=== PATIENT | female | born 1945 | race Caucasian/White ===

== ENCOUNTER 2017-02-09 09:54 | Emergency (ER) | payer MEDICARE, OTHER ==
[~2017-02-09] VITALS: Ht 170.2 cm; Wt 45.4 kg
[~2017-02-09 09:54] MED LIST: ALBU90OI61 INH; ALBUTEROL INH; DILT180 PO; FLUSAL2505 INH; GUAI600T33 PO; LEVFLO500 PO; LEVO750 PO; LEVSOD75 PO; MIRALAX17 GM PO; NICO7 TOP; OMEP20ER PO; PRED10 PO; Prednisone20 MG PO; Prednisone50 MG PO; Senna Plus Tab1 EACH PO; TEMA7.5 PO; TIOT18; Zithromax250 MG PO
[2017-02-09 11:31] LABS: BASOPHILS ABSOLUTE AUTO 0.03 K/mm3 (0.00-0.23); BASOPHILS PERCENT AUTO 0 % (0-2); EOSINOPHILS ABSOLUTE AUTO 0.04 K/mm3 (0.00-0.68); EOSINOPHILS PERCENT AUTO 0 % (0-6); Hematocrit 42.8 % (33.0-51.0); Hemoglobin 13.8 g/dL (11.5-16.0); IMMATURE GRAN ABSOLUTE AUTO 0.02 K/mm3 (0.00-0.10); IMMATURE GRAN PERCENT AUTO 0 % (0-1); LYMPHOCYTES ABSOLUTE AUTO 0.92 K/mm3 (0.84-5.20); LYMPHOCYTES PERCENT AUTO 10 % (21-46); MONOCYTES ABSOLUTE AUTO 0.31 K/mm3 (0.16-1.47); MONOCYTES PERCENT AUTO 4 % (4-13); Mean Corpuscular HGB 30.9 pg (26.0-34.0); Mean Corpuscular HGB Conc 32.2 g/dL (31.5-36.5); Mean Corpuscular Volume 96 fL (80-100); Mean Platelet Volume 11.3 fL (9.1-12.4); NEUTROPHILS ABSOLUTE AUTO 7.58 K/mm3 (1.96-9.15); NEUTROPHILS PERCENT AUTO 85 % (41-73); Platelet Count 219 K/mm3 (150-400); RDW Coefficient Variation 14.7 % (11.7-14.2); RDW Standard Deviation 52.1 fL (35.1-46.3); Red Blood Cell Count 4.46 M/mm3 (3.80-5.20)
[2017-02-09 11:41] LABS: Anion Gap 4 mmol/L (6-16); Blood Urea Nitrogen 7 mg/dL (8-24); Bun/Creatinine Ratio 13.6 (12.0-20.0); CO2, Blood 32 mmol/L (21-32); Calcium, Blood 8.2 mg/dL (8.5-10.1); Chloride, Blood 102 mmol/L (98-108); Creatinine, Blood 0.52 mg/dL (0.40-1.00); Glomerular Filtration Rate >60 (60-); Glucose, Blood 99 mg/dL (70-99); Sodium, Blood 138 mmol/L (136-145); Troponin I <0.015 ng/mL (0.000-0.040)
[2017-02-09 11:43] LABS: Influenza A Negative (NEGATIVE); Influenza B Negative (NEGATIVE)
[2017-02-09] MEDS ORDERED: Zithromax250 MG PO (12:01)
[2017-02-09] MEDS ORDERED: Prednisone20 MG PO (12:01)
== END 2017-02-09 13:07 | disposition home or self-care (01) ==
LOC: ER 09:54
PROVIDERS: Emergency Medicine
DX: J44.1 Chronic obstructive pulmonary disease with (acute) exacerbation (principal); F41.9 Anxiety disorder, unspecified; F17.200 Nicotine dependence, unspecified, uncomplicated; Z88.0 Allergy status to penicillin; Z88.2 Allergy status to sulfonamides; Z88.8 Allergy status to other drugs, medicaments and biological substances; Z79.899 Other long term (current) drug therapy; Z90.89 Acquired absence of other organs
CPT/HCPCS: 36415; 71046; 80048; 83880; 84484; 85025; 87804; 93005; 93010; 94640; 96361; 96374; 99283; J2060; J7030

== ENCOUNTER → 2017-06-04 | Outpatient (CLI) | payer MEDICARE, OTHER ==
[2017-06-04 18:28] LABS: Appearance, Urine Clear (Clear); Bilirubin, Urine Neg (Neg); Blood, Urine 1+ (Neg); Color, Urine Yellow (P-Yellow); Glucose Qualitative, Urine Neg (Neg); Ketones, Urine Neg (Neg); Leukocyte Esterase, Urine Neg (Neg); Nitrite, Urine Neg (Neg); Protein, Urine Neg (Neg); Specific Gravity, Urine 1.015 (1.003-1.022); Urobilinogen, Urine NORM (Normal)
[2017-06-04 18:42] LABS: Bacteria Not Seen /hpf; Red Blood Cells, Urine Not Seen /hpf (0-2); Squamous Epithelial Cells Not Seen /hpf (Few); White Blood Cells, Urine Not Seen /hpf (0-5)
== END | disposition home or self-care (01) ==
LOC: LAB 17:51 → LAB SHORT 17:51
PROVIDERS: Nurse Practitioner Family
DX: R35.0 Frequency of micturition (principal)
CPT/HCPCS: 81001

== ENCOUNTER → 2018-03-19 | Outpatient (CLI) | payer MEDICARE, OTHER ==
[2018-03-19 11:57] LABS: Source, Urine Clean Catch
[2018-03-19 17:26] LABS: Bilirubin, Urine Neg (Neg); Blood, Urine 1+ (Neg); Glucose Qualitative, Urine Neg (Neg); Ketones, Urine Neg (Neg); Leukocyte Esterase, Urine Neg (Neg); Nitrite, Urine Neg (Neg); Protein, Urine Neg (Neg); Urobilinogen, Urine NORM (Normal); pH, Urine 6.5 (5.0-8.0)
[2018-03-19 17:43] LABS: Appearance, Urine Clear (Clear); Color, Urine Yellow (P-Yellow)
[2018-03-19 17:44] LABS: Bacteria Few /hpf; Squamous Epithelial Cells Few /hpf (Few); White Blood Cells, Urine 0-2 /hpf (0-5)
== END | disposition home or self-care (01) ==
LOC: LAB 11:54 → LAB SHORT 11:54
PROVIDERS: Nurse Practitioner Family
DX: R31.29 Other microscopic hematuria (principal)
CPT/HCPCS: 81001

== ENCOUNTER 2018-09-22 23:26 | Emergency (ER) | payer MEDICARE, OTHER ==
[~2018-09-22] VITALS: Ht 167.6 cm; Wt 51.7 kg
[2018-09-22] MEDS ORDERED: SYNTHROID75 MC1 PO (23:41)
[2018-09-22] MEDS ORDERED: MYRBETRIQ25 MG PO (23:41)
[2018-09-22 23:53] LABS: BASOPHILS ABSOLUTE AUTO 0.03 K/mm3 (0.00-0.23); BASOPHILS PERCENT AUTO 0 % (0-2); EOSINOPHILS ABSOLUTE AUTO 0.08 K/mm3 (0.00-0.68); EOSINOPHILS PERCENT AUTO 1 % (0-6); Hematocrit 39.4 % (33.0-51.0); Hemoglobin 12.9 g/dL (11.5-16.0); IMMATURE GRAN ABSOLUTE AUTO 0.06 K/mm3 (0.00-0.10); IMMATURE GRAN PERCENT AUTO 1 % (0-1); LYMPHOCYTES ABSOLUTE AUTO 1.43 K/mm3 (0.84-5.20); LYMPHOCYTES PERCENT AUTO 11 % (21-46); MONOCYTES ABSOLUTE AUTO 1.33 K/mm3 (0.16-1.47); MONOCYTES PERCENT AUTO 11 % (4-13); Mean Corpuscular HGB 31.8 pg (26.0-34.0); Mean Corpuscular HGB Conc 32.7 g/dL (31.5-36.5); Mean Corpuscular Volume 97 fL (80-100); Mean Platelet Volume 12.1 fL (9.1-12.4); NEUTROPHILS ABSOLUTE AUTO 9.76 K/mm3 (1.96-9.15); NEUTROPHILS PERCENT AUTO 77 % (41-73); Platelet Count 160 K/mm3 (150-400); RDW Coefficient Variation 12.5 % (11.7-14.2); Red Blood Cell Count 4.06 M/mm3 (3.80-5.20); White Blood Cell Count 12.69 K/mm3 (4.00-11.30)
[2018-09-23 00:21] LABS: Alanine Aminotransfer (ALT/SGP 17 U/L (12-78); Albumin, Blood 3.4 g/dL (3.4-5.0); Albumin/Globulin Ratio 0.8 (0.8-1.8); Alk Phos 88 U/L (50-136); Anion Gap 7 mmol/L (6-16); Aspartate Aminotrans (AST/SGOT 12 U/L (12-37); Blood Urea Nitrogen 11 mg/dL (8-24); Bun/Creatinine Ratio 22.4 (12.0-20.0); CO2, Blood 28 mmol/L (21-32); Chloride, Blood 97 mmol/L (98-108); Creatinine, Blood 0.49 mg/dL (0.40-1.00); Globulin, Blood 4.1 g/dL (2.2-4.0); Glomerular Filtration Rate >60 (60-); Glucose, Blood 110 mg/dL (70-99); Potassium, Blood 3.8 mmol/L (3.5-5.5); Sodium, Blood 132 mmol/L (136-145); Total Protein, Blood 7.5 g/dL (6.4-8.2); Troponin I <0.015 ng/mL (0.000-0.040)
[2018-09-23] MEDS ORDERED: Zithromax250 MG PO (01:01)
[2018-09-23] MEDS ORDERED: Prednisone50 MG PO (01:01)
== END 2018-09-23 02:16 | disposition home or self-care (01) ==
LOC: ER 23:26
PROVIDERS: Emergency Medicine
DX: J44.1 Chronic obstructive pulmonary disease with (acute) exacerbation (principal); Z88.0 Allergy status to penicillin; Z88.2 Allergy status to sulfonamides; Z88.8 Allergy status to other drugs, medicaments and biological substances; Z79.899 Other long term (current) drug therapy; J44.9 Chronic obstructive pulmonary disease, unspecified; F17.210 Nicotine dependence, cigarettes, uncomplicated
CPT/HCPCS: 71046; 80053; 84484; 85025; 93005; 93010; 94640; 96374; 99284-25; J1100

== ENCOUNTER 2018-11-23 06:41 | Emergency (ER) | payer MEDICARE, OTHER ==
[~2018-11-23] VITALS: Ht 167.6 cm; Wt 52.2 kg
[~2018-11-23 06:41] MED LIST changes: +MYRBETRIQ25 MG PO; +SYNTHROID75 MC1 PO
[2018-11-23] MEDS ORDERED: ANORO ELLIPTA1 EACH INH (06:54)
[2018-11-23] MEDS ORDERED: SYNTHROID75 MCG PO (06:54)
[2018-11-23] MEDS ORDERED: MYRBETRIQ25 MG PO (06:56)
[2018-11-23 07:07] LABS: BASOPHILS ABSOLUTE AUTO 0.04 K/mm3 (0.00-0.23); BASOPHILS PERCENT AUTO 0 % (0-2); EOSINOPHILS ABSOLUTE AUTO 0.04 K/mm3 (0.00-0.68); EOSINOPHILS PERCENT AUTO 0 % (0-6); Hematocrit 42.7 % (33.0-51.0); Hemoglobin 13.8 g/dL (11.5-16.0); IMMATURE GRAN ABSOLUTE AUTO 0.05 K/mm3 (0.00-0.10); IMMATURE GRAN PERCENT AUTO 1 % (0-1); LYMPHOCYTES ABSOLUTE AUTO 1.47 K/mm3 (0.84-5.20); LYMPHOCYTES PERCENT AUTO 14 % (21-46); MONOCYTES ABSOLUTE AUTO 0.79 K/mm3 (0.16-1.47); MONOCYTES PERCENT AUTO 8 % (4-13); Mean Corpuscular HGB 31.2 pg (26.0-34.0); Mean Corpuscular HGB Conc 32.3 g/dL (31.5-36.5); Mean Corpuscular Volume 96 fL (80-100); NEUTROPHILS ABSOLUTE AUTO 8.12 K/mm3 (1.96-9.15); NEUTROPHILS PERCENT AUTO 77 % (41-73); RDW Coefficient Variation 12.6 % (11.7-14.2); RDW Standard Deviation 45.1 fL (35.1-46.3); Red Blood Cell Count 4.43 M/mm3 (3.80-5.20); White Blood Cell Count 10.51 K/mm3 (4.00-11.30)
[2018-11-23 07:09] LABS: Platelet Count 128 K/mm3 (150-400)
[2018-11-23 07:29] LABS: Alanine Aminotransfer (ALT/SGP 18 U/L (12-78); Albumin, Blood 3.6 g/dL (3.4-5.0); Albumin/Globulin Ratio 0.9 (0.8-1.8); Alk Phos 88 U/L (50-136); Anion Gap 7 mmol/L (6-16); Aspartate Aminotrans (AST/SGOT 17 U/L (12-37); Bilirubin, Total 0.5 mg/dL (0.1-1.0); Blood Urea Nitrogen 10 mg/dL (8-24); Bun/Creatinine Ratio 20.2 (12.0-20.0); CO2, Blood 26 mmol/L (21-32); Calcium, Blood 8.8 mg/dL (8.5-10.1); Chloride, Blood 101 mmol/L (98-108); Glomerular Filtration Rate >60 (60-); Glucose, Blood 112 mg/dL (70-99); Potassium, Blood 4.1 mmol/L (3.5-5.5); Sodium, Blood 134 mmol/L (136-145); Total Protein, Blood 7.6 g/dL (6.4-8.2)
[2018-11-23] MEDS ORDERED: PRED20 PO (07:52)
[2018-11-23] MEDS ORDERED: AZIT250 PO (07:52)
== END 2018-11-23 10:05 | disposition home or self-care (01) ==
LOC: ER 06:41
PROVIDERS: Emergency Medicine
DX: J44.1 Chronic obstructive pulmonary disease with (acute) exacerbation (principal); Z88.0 Allergy status to penicillin; Z88.2 Allergy status to sulfonamides; Z88.8 Allergy status to other drugs, medicaments and biological substances; Z79.899 Other long term (current) drug therapy; F17.210 Nicotine dependence, cigarettes, uncomplicated
CPT/HCPCS: 71045; 80053; 85025; 93005; 93010; 94644; 94664; 94667; 94760; 98960; 99285-25; 99407

== ENCOUNTER 2019-12-18 19:53 | Inpatient (IN) | payer MEDICARE, OTHER ==
[~2019-12-18] VITALS: Ht 165.1 cm; Wt 48.5 kg
[~2019-12-18 19:53] MED LIST changes: +ANORO ELLIPTA1 EACH INH; +AZIT250 PO; +PRED20 PO; +SYNTHROID75 MCG PO
[2019-12-18 20:43] LABS: PCO2 Arterial 49.4 mmHg (35-45); PO2 Arterial 86.6 mmHg (80-100); pH Blood Arterial 7.39 (7.35-7.45)
[2019-12-18 20:51] LABS: BASOPHILS ABSOLUTE AUTO 0.04 K/mm3 (0.00-0.23); BASOPHILS PERCENT AUTO 0 % (0-2); EOSINOPHILS ABSOLUTE AUTO 0.01 K/mm3 (0.00-0.68); EOSINOPHILS PERCENT AUTO 0 % (0-6); Hematocrit 40.1 % (33.0-51.0); Hemoglobin 12.7 g/dL (11.5-16.0); IMMATURE GRAN ABSOLUTE AUTO 0.08 K/mm3 (0.00-0.10); IMMATURE GRAN PERCENT AUTO 1 % (0-1); LYMPHOCYTES ABSOLUTE AUTO 0.78 K/mm3 (0.84-5.20); LYMPHOCYTES PERCENT AUTO 5 % (21-46); MONOCYTES ABSOLUTE AUTO 1.24 K/mm3 (0.16-1.47); MONOCYTES PERCENT AUTO 8 % (4-13); Mean Corpuscular HGB 29.5 pg (26.0-34.0); Mean Corpuscular HGB Conc 31.7 g/dL (31.5-36.5); Mean Corpuscular Volume 93 fL (80-100); Mean Platelet Volume 12.1 fL (9.1-12.4); NEUTROPHILS ABSOLUTE AUTO 14.38 K/mm3 (1.96-9.15); NEUTROPHILS PERCENT AUTO 87 % (41-73); Platelet Count 176 K/mm3 (150-400); RDW Coefficient Variation 13.1 % (11.7-14.2); RDW Standard Deviation 44.9 fL (35.1-46.3); White Blood Cell Count 16.53 K/mm3 (4.00-11.30)
[2019-12-18 20:55] LABS: Alanine Aminotransfer (ALT/SGP 12 U/L (12-78); Albumin, Blood 3.1 g/dL (3.4-5.0); Albumin/Globulin Ratio 0.8 (0.8-1.8); Alk Phos 88 U/L (50-136); Anion Gap 7 mmol/L (6-16); Aspartate Aminotrans (AST/SGOT 14 U/L (12-37); Bilirubin, Total 0.9 mg/dL (0.1-1.0); Blood Urea Nitrogen 12 mg/dL (8-24); Bun/Creatinine Ratio 38.5 (12.0-20.0); CO2, Blood 29 mmol/L (21-32); Calcium, Blood 8.5 mg/dL (8.5-10.1); Chloride, Blood 100 mmol/L (98-108); Creatinine, Blood 0.31 mg/dL (0.40-1.00); Globulin, Blood 4.1 g/dL (2.2-4.0); Glomerular Filtration Rate >60 (60-); Glucose, Blood 108 mg/dL (70-99); Potassium, Blood 3.8 mmol/L (3.5-5.5); Sodium, Blood 136 mmol/L (136-145); Total Protein, Blood 7.2 g/dL (6.4-8.2); Troponin I <0.015 ng/mL (0.000-0.040)
[2019-12-18 22:03] LABS: Adenovirus Not Detected (NOT DETECT); Bordetella pertussis Not Detected (NOT DETECT); Chlamydophila pneumoniae Not Detected (NOT DETECT); Coronavirus 229E Not Detected (NOT DETECT); Coronavirus HKU1 Not Detected (NOT DETECT); Coronavirus NL63 Not Detected (NOT DETECT); Coronavirus OC43 Not Detected (NOT DETECT); Human Metapneumovirus Not Detected (NOT DETECT); Human Rhinovirus/Enterovirus Not Detected (NOT DETECT); Influenza A/2009-H1 Not Detected (NOT DETECT); Influenza A/H1 Not Detected (NOT DETECT); Influenza A/H3 Not Detected (NOT DETECT); Influenza B Not Detected (NOT DETECT); Mycoplasma pneumoniae Not Detected (NOT DETECT); Parainfluenza Virus 1 Not Detected (NOT DETECT); Parainfluenza Virus 2 Not Detected (NOT DETECT); Parainfluenza Virus 3 Not Detected (NOT DETECT); Parainfluenza Virus 4 Not Detected (NOT DETECT); Respiratory Syncytial Virus Not Detected (NOT DETECT); SARS-Cov-2 (COVID-19), BioFire Not Detected (NOT DETECT)
--- NOTE | 2019-12-19 02:07 | NUR ---
PATIENT ARRIVED TO UNIT AT 0000 AND WAS SLID FROM STRETCHER TO BED. RECIEVED REPORT FROM JONEL FLYNN. PATIENT IS ALERT, ORIENTED AND COOPERATIVE WITH CARE. PATIENT HAS VERY DRY SKIN. PATIENT WAS GIVEN BED BATH, LOTION APPLIED, AND BRIEF CHANGED. O2 IS >90% ON 4L VIA NC, PURSED LIP BREATHING ON ARRIVAL TO UNIT, PATIENT IS CURRENTLY SLEEPING. VSS. CURRENTLY ON BEDREST DUE TO OXYGEN NEEDS. CALL LIGHT IN REACH, BED IN LOW POSITION. WILL CONTINUE TO MONITOR.
[2019-12-19 05:00] LABS: BASOPHILS ABSOLUTE AUTO 0.01 K/mm3 (0.00-0.23); BASOPHILS PERCENT AUTO 0 % (0-2); EOSINOPHILS ABSOLUTE AUTO 0.01 K/mm3 (0.00-0.68); EOSINOPHILS PERCENT AUTO 0 % (0-6); Hematocrit 35.3 % (33.0-51.0); Hemoglobin 11.1 g/dL (11.5-16.0); IMMATURE GRAN ABSOLUTE AUTO 0.07 K/mm3 (0.00-0.10); IMMATURE GRAN PERCENT AUTO 1 % (0-1); LYMPHOCYTES ABSOLUTE AUTO 0.38 K/mm3 (0.84-5.20); LYMPHOCYTES PERCENT AUTO 3 % (21-46); MONOCYTES ABSOLUTE AUTO 0.17 K/mm3 (0.16-1.47); MONOCYTES PERCENT AUTO 1 % (4-13); Mean Corpuscular HGB 29.4 pg (26.0-34.0); Mean Corpuscular HGB Conc 31.4 g/dL (31.5-36.5); Mean Corpuscular Volume 93 fL (80-100); Mean Platelet Volume 12.2 fL (9.1-12.4); NEUTROPHILS ABSOLUTE AUTO 12.16 K/mm3 (1.96-9.15); NEUTROPHILS PERCENT AUTO 95 % (41-73); Platelet Count 158 K/mm3 (150-400); RDW Coefficient Variation 13.1 % (11.7-14.2); RDW Standard Deviation 45.1 fL (35.1-46.3); Red Blood Cell Count 3.78 M/mm3 (3.80-5.20)
--- NOTE | 2019-12-19 05:07 | NUR ---
PATIENT SLEPT MOST THE NIGHT. USED BEDPAN DUE TO OXYGEN NEEDS AND BECOMING SOB WITH EXERTION. 02 SATS >90% ON 3L NC. REPOSITIONS SELF WELL IN BED. PATIENT COMPLAINED OF COMPRESSION SOCKS CAUSING LEG PAIN. ASKED TO HAVE THEM TAKEN OFF. VSS, NO ACUTE CHANGES. CALL RAOUL LOZOYA. WILL CONTINUE TO MONITOR.
[2019-12-19 05:29] LABS: Anion Gap 4 mmol/L (6-16); Blood Urea Nitrogen 11 mg/dL (8-24); Bun/Creatinine Ratio 34.7 (12.0-20.0); CO2, Blood 32 mmol/L (21-32); Calcium, Blood 8.7 mg/dL (8.5-10.1); Chloride, Blood 99 mmol/L (98-108); Creatinine, Blood 0.32 mg/dL (0.40-1.00); Glomerular Filtration Rate >60 (60-); Glucose, Blood 126 mg/dL (70-99); Potassium, Blood 3.8 mmol/L (3.5-5.5); Sodium, Blood 135 mmol/L (136-145)
--- NOTE | 2019-12-19 10:26 | NUR ---
ASSUMED CARE OF PT, RECEIVED REPORT FROM GEE ESTEVEZ. PT CONTINUES ALERT AND ORIENTED, OXYGEN FLOW CURRENTLY AT 2.5 L/MIN WHICH IS PT'S BASELINE, O2 SATS >90%. PT CONTINUES TO STATE SOB, SITTING UPRIGHT IN BED WITH OCCASIONAL PURSED LIP BREATHING. PT DENIES INCREASE IN SOB LONG SHE RESTS IN BED, STATES SIGNIFICANT SOB WITH ACTIVITY. PT RESTING QUIETLY IN BED WITH TV ON, CALL LIGHT WITHIN REACH.
--- NOTE | 2019-12-19 18:04 | NUR ---
SHIFT SUMMARY: NO ACUTE CHANGES T/OUT SHIFT. PT CONTINUES A&OX4, RESTS QUIETLY WITH EYES CLOSED BUT AROUSES EASILY. WHEN PT APPEARS TO BE SLEEPING, HER BREATHING IS EVEN AND UNLABORED WITH OXYGEN SATURATIONS ABOUT 93%, WHEN PT AROUSES HER BREATHING APPEARS TO BECOME MORE LABORED WITH OCCASIONAL PURSED LIP BREATHING AND OXYGEN SATURATION ABOUT 90%. PT OXYGEN FLOW AT 3L/MIN AT THIS TIME. CALL LIGHT WITHIN REACH. WILL CONTINUE TO MONITOR AND TREAT ACCORDINGLY.
--- NOTE | 2019-12-19 19:15 | NUR ---
ASSUMED CARE OF PATIENT, RECEIVED REPORT FROM AMADOU FLYNN. PT SITTING UP IN BED WATCHING TV. O2 @3LPM, DYSPNEA NOTED WHEN PATIENT TALKING. NO ACUTE RESP DISTRESS OBSERVED AT THIS TIME, DENIES PAIN. WILL CONTINUE TO MONITOR
--- NOTE | 2019-12-20 16:58 | NUR ---
REPORT GIVEN TO YAHAIRA FLYNN ON MEDICAL.
--- NOTE | 2019-12-20 16:58 | NUR ---
RECEIEVED REPORT FROM JASON FLYNN, PATIENT TO TRANSFER FROM ROOM PCU 13 TO 306.
--- NOTE | 2019-12-20 17:26 | NUR ---
PATIENT ARRIVED TO ROOM 306 AT 1710. PATIENT SITUATED IN ROOM AND BED AND GIVEN CALL LIGHT. ENSURED PATIENTS COMFORT. PATIENT ON 4LO2 NC; PURSED-LIP BREATHING NOTED. CALL LIGHT IN REACH. WILL CONTINUE TO MONITOR AND PROVIDE CARE.
--- NOTE | 2019-12-21 06:03 | NUR ---
SHIFT SUMMARY AOX4. VSS. DENIES PAIN, N/V. REPORTS DYSPNEA c VERY MINIMAL ACTIVITY. IS ABLE TO TALK IN COMPLETE SENTENCES, HOWEVER DOES PURSED LIP BREATHING. HOB ELEVATED & CAN'T TOLERATE HOB DOWN. SPO2 >90% ON 4L, ABLE TO TITRATE O2 DOWN TO 3L (2.5L IS BASLINE). LUNGS SOUND DIM & TIGHT T/O. HAS OCCASIONAL CONGESTED COUGH c SMALL AMOUNT THICK YELLOW SPUTUM. BEDREST SINCE PT IS DYSPNIC EVEN c MOVEMENT IN BED. RECIEVING BREATHING TX PRN & IV SOLUMEDROL. CALL LIGHT IN REACH & PT ABLE TO MAKE NEEDS KNOWN.
[2019-12-21 13:23] LABS: PCO2 Arterial 49.5 mmHg (35-45); pH Blood Arterial 7.44 (7.35-7.45)
--- NOTE | 2019-12-21 15:53 | NUR ---
PATIENT PLEASANT AND COOPERATIVE WITH STAFF. VITALS HAVE BEEN STABLE, ALTHOUGH RR ELEVATED AT ~22. RT WAS IN GIVING PATIENT A BREATHING TREATMENT AND NOTICED A LARGE DIFFERENCE BETWEEN FLUID INTAKE VS OUTPUT; NOTIFIED ME. I WEIGHT THE PATIENT AND NOTICED A 3.9KG WEIGHT INCREASE SINCE ADMISSION THREE DAYS AGO. DR DUMONT NOTIFIED OF THIS PATIENT CONTINUES TO BE SEVERELY DYSPNIC EVEN AT REST. PATIENT USES PURSE-LIPPED BREATHING CONSTANTLY. DR DUMONT PROVIDED NEW ORDERS TO PLACE PATIENT ON STRICT I&Os, FLUID RESTRICTION OF 1.5L/DAY, 40MG OF IV LASIX NOW AND THEN DAILY, AND DAILY WEIGHTS. FIRST DOSE OF LASIX ADMINISTERED. PATIENT EXPLAINED THE NEW ORDERS AND THE REASONS BEHIND THEM. PATIENT CONTINUES TO REST IN BED. WILL CONTINUE TO MONITOR AND PROVIDE CARE NEEDED.
--- NOTE | 2019-12-22 01:57 | NUR ---
Assumed care from GEE Ohara at [phone]. Ms. Aguilar is A&OX3 and states she is having no discomfort. Legs with trace to 1+ edema. No change from 2129 report. will continue close monitoring
--- NOTE | 2019-12-22 07:47 | NUR ---
[employer] SUMMARY Patient slept well overnight. She sat up in bed to sleep around 45 degrees. Stated she sleeps sitting up at home. No complaints of pain or discomfort noted
--- NOTE | 2019-12-22 15:20 | NUR ---
PCU TRANSFER REPORT CALLED TO JEFRY IN PCU. PER DR LOWE TRANSFER TO PCU TO TRIAL BIPAP. PT HAS BEEN ON 3L VIA N/C T/O THE DAY, LS DIMINISHED T/O. PT SOB WITH MINIMAL MOVEMENT, PURSED LIP BREATHING AND TALKING IN SHORT SENTENCES. PT TRANSFERED AT 1515 TO PCU 11 VIA BED. WILL NOTIFY SON.
--- NOTE | 2019-12-22 18:11 | NUR ---
SHIFT SUMMARY; ASSUMED CARE FROM MEDICAL FLOOR FOR IN HOUSE TRANSFER. A/A/OX4, ON 2.5L O2 ON ARRIVAL WHICH IS BASELINE HOME O2. SATS 94%, NO VISIBLE WORK OF BREATHING. SPOKE WITH DOUBLE BACKER WHO ORDERED BIPAP TRIAL. BIPAP STARTED BY RT. PT WORE FOR APPROX 30 MINS THEN ASKED FOR MASK TO BE REMOVED. PT STATES IT DOESN'T DO ANY GOOD. PER DR. NICK ENCOURAGE WEAR DURING NIGHT, IF PT REFUSES, OK. BIPAP REMOVED AT THIS TIME, PT EATING DINNER TRAY, 2.5L 02 VIA NC PLACED. WILL CONTINUE TO TREAT AND MONITOR UNTIL CHANGE OF SHIFT.
--- NOTE | 2019-12-23 06:06 | NUR ---
SHIFT SUMMARY PT SLEPT T/O SHIFT. PT ALERT AND ORIENTED. PT ABLE TO TURN SELF IN BED. OXYGEN SATURATION ABOVE 92% ON 2.5 L OF OXYGEN VIA NC. HR STABLE. BP STABLE. PT REPORTS NO CP OR PRESSURE. WILL CONTINUE TO [place]ONT[place] UNTIL REPORT GIVEN TO MARIA FLYNN.
--- NOTE | 2019-12-23 09:45 | NUR ---
AT 0930, [employer] FIONA PEREZ CALLED TO NOTIFY ME THAT PATIENT'S HEART RATE WAS UP IN THE 190'S. I WENT INTO THE PATIENT'S ROOM. SHE WAS WORKING WITH PHYSICAL THERAPY. PHYSICAL THERAPIST STATES THAT SHE WAS ONLY HELPING TO SCOOT PATIENT UP IN THE BED. PATIENT SHORT OF BREATH. SPO2 IN 90'S. DENIES CHEST PAIN AND PALPITATIONS. STATES "I FEEL LIKE THIS ALL THE TIME". ASSISTED PATIENT TO SIT UP IN BED. BP 140/60. HEART RATE TRENDING DOWN TO 1 TEENS. PHYSICAL THERAPIST TO ASSIST PATIENT WITH IN BED EXERCISES, NOT ATTEMPTING TO GET PATIENT OUT OF BED AT THIS TIME.
--- NOTE | 2019-12-23 10:15 | NUR ---
PATIENT'S HEART RATE NOTED TO SPIKE UP TO THE 170'S AT 1000 BRIEFLY. BP NOW IN THE 1TEENS. PATIENT CONTINUES TO DENY CHEST PAIN AND SHORTNESS OF BREATH. CALLED DR. DUMONT AND NOTIFIED HIM OF PATIENT'S SPIKES IN HEART RATE. PATIENT IS STILL SINUS TACH. READ HIM PATIENT'S LAST BLOOD PRESSURES. DR. DUMONT STATES THAT HE WILL BE UP SHORTLY TO SEE THE PATIENT. STATES TO MAKE SURE PALLIATIVE CARE CONSULT HAS BEEN ORDERED.
--- NOTE | 2019-12-23 11:25 | NUR ---
DR. DUMONT AT BEDSIDE. DISCUSSED POC. DISCUSSED ELEVATIONS IN HEART RATE, PATIENT'S VITALS, WEIGHT, INTAKE AND OUTPUT, AND LASIX ADMINISTRATION. DR. DUMONT REVIEWED TELESTRIP OF HIGH HEART RATE EVENT. POPPY MIHIR STATED PATIENT WAS ANXIOUS AT 1000 WHEN HER HEART RATE SPIKED. DR. DUMONT GAVE ORDERS FOR ATIVAN, SEE EMAR. MKCEON FROM PALLIATIVE CARE CAME DOWN AND SPOKE WITH DR. DUMONT AND THEN SPOKE WITH THE PATIENT.
--- NOTE | 2019-12-23 12:45 | NUR ---
[facility] CALLED TO NOTIFY ME THAT PATIENT'S HEART RATE WAS ELEVATED IN THE 150'S. PATIENT UP TO [facility] AND RECEIVING A BATH. DENIES CHEST PAIN AND PALPITATIONS. BP 116/70. STATES SHE FEELS "A LITTLE MORE SHORT OF BREATH THAN USUAL". SPO2 IN 90'S ON 2.5L O2 VIA NC. HEART RATE QUICKLY TRENDING DOWN TO THE 120'S.
--- NOTE | 2019-12-23 14:30 | NUR ---
SPOKE WITH DR. CORRAL. NOTIFIED HER PATIENT ON 2.5L O2 VIA NC, HEART RATE ELEVATED UP TO 190'S WITH ACTIVITY THIS AM AND THEN UP TO 150'S WITH ACTIVITY THIS AFTERNOON. SHE STATES PATIENT IS ON A STEROID. SHE TALKED WITH PALLIATIVE CARE AND THEY ARE ADJUSTING CODE STATUS BASED ON PATIENT PREFERENCE.
--- NOTE | 2019-12-23 19:12 | NUR ---
SHIFT SUMMARY: PATIENT A/OX3. HAS DENIED PAIN THROUGHOUT THE SHIFT. ON 2.5L O2 VIA NC. HEART RATE INCREASED TO 150'S-160'S AND BRIEFLY TOUCHING 190 THIS AM WITH MINIMAL ACTIVITY, MD AWARE. HEART RATE UP TO 150'S-160'S WHEN UP TO BSC AND WITH BED BATH, TRENDED BACK DOWN. WHEN HEART RATE IS ELEVATED PATIENT DENIES CHEST PAIN AND PALPITATIONS BUT REPORTS SLIGHT INCREASE IN SHORTNESS OF BREATH. SHE DISCUSSED PLAN WITH PALLIATIVE CARE. CODE STATUS CHANGED TO LIMITED WITH DEFIB ONLY. HEART RATE IS NOW IN THE 90'S. ABLE TO REPOSITION SELF IN BED. REFUSED RYAN HOSE. REPORT GIVEN TO ONCOMING RN.
--- NOTE | 2019-12-24 05:50 | NUR ---
SHIFT SUMMARY PT SLEPT T/O SHIFT. PT ALERT AND ORIENTED X 4. PT ABLE TO TURN SELF IN BED NEEDED. OXYGEN SATURATION MAINTAINED ABOVE 92% ON 2.5 L OF OXYGEN VIA NC. PT REFUSED CPAP T/O NIGHT. HR STABLE. TACYCHARDIC AT TIMES DURING EXERTION, BUT RETURNS TO BASELINE. BP STABLE. PT REPORTS NO CP OR PRESSURE. WILL CONTINUE TO MONITOR UNTIL REPORT GIVEN TO DARBY FLYNN.
--- NOTE | 2019-12-24 07:36 | NUR ---
CARE ASSUMED REPORT RECEIVED, CARE ASSUMED AT 0700 FROM GEE PENA. ON ROUNDS PT ASLEEP WITH HOB ELEVATED. RR EVEN, UNLABORED. WHEN WOKEN UP FOR ASSESSMENT, PT TACHYPNEIC, RR ELEVATED, PURSED LIP BREATHING. PT REPORTS FEELING SOB. BP, HR, SPO2 STABLE ON 2 LPM NASAL CANNULA. PT DENIES CHEST PAIN/DIZZINESS. REPORTS OVERALL FEELING EXTREMELY WEAK TODAY. LUCINA, RT AT BEDSIDE WITH PATIENT GIVING RESPIRATORY TREATMENT AT THIS TIME.
--- NOTE | 2019-12-24 09:20 | NUR ---
UPDATE PT CONTINUES TO BE SHORT OF BREATH. OXYGEN DEMANDS REMAIN THE SAME. PT VISIBLY PURSED LIP BREATHING, SITTING IN BED WITH HOB AT HIGHEST SETTING, FURROWED BROW, REPORTS FEELING SEVERELY SHORT OF BREATH. DISCUSSED ATIVAN AND USE OF CPAP. PT REPORTS FEELING LIKE THE CPAP IS NOT EFFECTIVE. WHEN EDUCATED, PT AGREEABLE. ABLE TO TAKE PO MEDICATIONS WITHOUT DIFFICULTY. PT CONTINUES TO DENY CHEST PAIN, DIZZINESS.
--- NOTE | 2019-12-24 11:08 | NUR ---
UPDATE PT WORE CPAP FOR ONLY 5 MINUTES AND CALLED TO HAVE IT TAKEN OFF. RATE IN THE 30'S. PT REPORTS IT TOO UNCOMFORTABLE. CHANGED PT BACK TO NASAL CANNULA. SINCE THEN, PT USED BEDPAN FOR BOWEL MOVEMENT, TOOK A NAP AND WAKES UP TO DOCTOR ENTERING ROOM AND STATES, "I FEEL SO MUCH BETTER. I THINK THE NAP AND THE BOWEL MOVEMENT HELPED." PT CONTINUES TO BE SOB, RESPIRATORY RATE 20'S. UPDATED DR. DUMONT ON EVENTS OF THE MORNING. PER DR. DUMONT, PT MUCH BETTER FROM PREVIOUS DAYS. DIURESIS WORKING WELL, CONTINUE WITH CURRENT PLAN. NEW ORDER TO TRANSFER PATIENT TO MEDICAL FLOOR WITH TELEMETRY STATUS.
--- NOTE | 2019-12-24 14:30 | NUR ---
TRANSFER PT TO TRANSFER TO ROOM 327. REPORT GIVEN TO SHANNON MARTINEZ RN TO ASSUME CARE. ROOM BEING CLEANED AT THIS TIME.
--- NOTE | 2019-12-24 15:09 | NUR ---
TRANSFER PT'S ASSESSMENTS UNCHANGED. RR CONTINUE TO BE ELEVATED, PT REPORTS SOB, BUT ALSO REPORTS FEELING MUCH BETTER AND SPO2 MAINTAINING ON 2.5 LPM NASAL CANNULA. VITALS STABLE. PT TAKEN TO NEW ROOM BY BRANDY DOAN.
--- NOTE | 2019-12-24 17:27 | NUR ---
SHIFT SUMMARY 5985 RECEIVED PT TO RM 327 VIA W/C FROM U 11. PT IS A&O, PLEASANT AND CO-OP. ADMITTED FOR COPD EXAC. PT WITH END STAGE COPD, SOB AT REST BASELINE. PT ON 2.5L O2 NC WHICH IS BASELINE HOME O2 WELL. PT REPORTS THAT SHE LIVES WITH HER SON, WHO IS ABLE TO HELP HER "A LITTLE BIT". UP TO BSC WITH 1P SBA. DENIES NEEDS. CALL LT IN REACH.
--- NOTE | 2019-12-25 07:03 | NUR ---
SHIFT SUMMARY PATIENT ALERT AND ORIENTED. RESTED IN BED OVERNIGHT AND WAS ABLE TO SLEEP WELL. PATIENT STILL HAS SHORTNESS OF BREATH, EVEN AT REST. SHE HAD MINIMAL NEEDS OVERNIGHT AND ADHERES WELL TO HER FLUID RESTRICTION. IV PATENT AND FLUSHED. BED IN LOWEST POSITION WITH WHEELS LOCKED. CALL LIGHT WITHIN REACH. REPORT GIVEN TO ONCOMING RN.
[2019-12-25] MEDS ORDERED: IPRAT-ALBUT 0.5-3 ML INH (14:03)
[2019-12-25] MEDS ORDERED: LASIX40 MG PO (14:04)
[2019-12-25] MEDS ORDERED: POTA10T PO (14:05)
[2019-12-25] MEDS ORDERED: PRED10 PO (14:09)
--- NOTE | 2019-12-25 15:31 | NUR ---
PT RESTING QUIETLY AWAKE AT START OF SHIFT. DENIED NEEDS. REPORTED THAT SHE WAS READY FOR BREAKFAST. PT RESTS QUIETLY WATCHING TV WITH OCCASSIONAL PURSED LIP BREATHING. PT STATED THAT SHE WAS AT BASELINE; O2 AT 2.5L WHICH IS BASELINE HOME O2. LUNGS T/O ARE DIMINISHED, BUT CLEAR. DR DUMONT HERE THIS AM TO SEE PT, DISCUSSED D/C PLANNING. PT CLEAR TO D/C HOME BEING AT BASELINE FOR END STAGE COPD. PT ALSO CONTINUES TO SMOKE. SMOKING CESSATION ENCOURAGED, BUT PT STATED, "THAT ISN'T GOING TO HAPPEN". PT'S SON CALLED TO INFORM HIM OF D/C. SON BRINGING CLOTHES AND O2 FOR TRANSPORT HOME. PT ASSISTED OUT TO SON'S CAR VIA W/C BY CHAIN MENDER.
[2019-12-26] MEDS ORDERED: CEFD300 PO (14:04)
[2019-12-31] MEDS ORDERED: FLUTICASONE-SA1 EAC2 INH (09:21)
[2019-12-31] MEDS ORDERED: SEEBRI NEOHA15.6 MC1 INH (09:21)
== END 2019-12-25 14:22 | disposition home health service (06) | DRG 291 ==
LOC: ER 19:53 → PCU 23:01 → MEDS 12-20 17:18 → PCU 12-22 15:17 → MEDS 12-24 15:04
PROVIDERS: Internal Medicine Critical Care Medicine; Physician Assistant; ADMIT Hospitalist
DX: I50.31 Acute diastolic (congestive) heart failure (principal); J18.9 Pneumonia, unspecified organism; J96.21 Acute and chronic respiratory failure with hypoxia; J10.01 Influenza due to other identified influenza virus with the same other identified influenza virus pneumonia; E03.9 Hypothyroidism, unspecified; E78.5 Hyperlipidemia, unspecified; F17.210 Nicotine dependence, cigarettes, uncomplicated; I73.9 Peripheral vascular disease, unspecified; J43.9 Emphysema, unspecified; Z11.59 Encounter for screening for other viral diseases; Z66 Do not resuscitate; Z99.81 Dependence on supplemental oxygen
CPT/HCPCS: 0202U; 36415; 36600; 71045; 80048; 80053; 82803; 83880; 84484; 85025; 87070; 87077; 87185; 87205; 93005; 93010; 94640; 94660; 94664; 94667; 94760; 94762; 96365; 96366; 96368; 97110; 97162; 97165; 97530; 98960; 99285-25; G0008; J0456; J0696; J1650; J1940; J2920; J2930; J3475; J7030; J7050; J7120; Q2038

== ENCOUNTER 2020-03-26 20:53 | Emergency (ER) | payer MEDICARE, OTHER ==
[~2020-03-26] VITALS: Ht 160 cm; Wt 44.5 kg
[~2020-03-26 20:53] MED LIST changes: +CEFD300 PO; +FLUTICASONE-SA1 EAC2 INH; +IPRAT-ALBUT 0.5-3 ML INH; +LASIX40 MG PO; +POTA10T PO; +SEEBRI NEOHA15.6 MC1 INH
[2020-03-26 21:36] LABS: BASOPHILS ABSOLUTE AUTO 0.05 K/mm3 (0.00-0.23); BASOPHILS PERCENT AUTO 1 % (0-2); EOSINOPHILS ABSOLUTE AUTO 0.12 K/mm3 (0.00-0.68); EOSINOPHILS PERCENT AUTO 1 % (0-6); Hematocrit 38.2 % (33.0-51.0); Hemoglobin 12.2 g/dL (11.5-16.0); IMMATURE GRAN ABSOLUTE AUTO 0.03 K/mm3 (0.00-0.10); IMMATURE GRAN PERCENT AUTO 0 % (0-1); LYMPHOCYTES PERCENT AUTO 21 % (21-46); MONOCYTES ABSOLUTE AUTO 1.11 K/mm3 (0.16-1.47); MONOCYTES PERCENT AUTO 12 % (4-13); Mean Corpuscular HGB 29.9 pg (26.0-34.0); Mean Corpuscular HGB Conc 31.9 g/dL (31.5-36.5); Mean Corpuscular Volume 94 fL (80-100); Mean Platelet Volume 12.2 fL (9.1-12.4); NEUTROPHILS ABSOLUTE AUTO 6.32 K/mm3 (1.96-9.15); NEUTROPHILS PERCENT AUTO 66 % (41-73); Platelet Count 178 K/mm3 (150-400); RDW Coefficient Variation 13.3 % (11.7-14.2); RDW Standard Deviation 45.7 fL (35.1-46.3); Red Blood Cell Count 4.08 M/mm3 (3.80-5.20); White Blood Cell Count 9.63 K/mm3 (4.00-11.30)
[2020-03-26 21:37] LABS: pH Blood Venous 7.37 (7.34-7.37)
[2020-03-26 21:38] LABS: Bicarbonate Venous 28.5 mmol/L (24.0-30.0); PCO2 Venous 54.7 mmHg (38-42); PO2 Venous 101 mmHg (38-42)
[2020-03-26 21:39] LABS: Base Excess Venous 5.9 mmol/L
[2020-03-26 21:48] LABS: Alanine Aminotransfer (ALT/SGP 16 U/L (12-78); Albumin, Blood 3.1 g/dL (3.4-5.0); Albumin/Globulin Ratio 0.8 (0.8-1.8); Alk Phos 94 U/L (50-136); Anion Gap 2 mmol/L (6-16); Aspartate Aminotrans (AST/SGOT 10 U/L (12-37); Bilirubin, Total 0.5 mg/dL (0.1-1.0); Blood Urea Nitrogen 10 mg/dL (8-24); Bun/Creatinine Ratio 21.4 (12.0-20.0); CO2, Blood 33 mmol/L (21-32); Calcium, Blood 8.4 mg/dL (8.5-10.1); Chloride, Blood 98 mmol/L (98-108); Creatinine, Blood 0.47 mg/dL (0.40-1.00); Glomerular Filtration Rate >60 (60-); Glucose, Blood 92 mg/dL (70-99); Potassium, Blood 3.9 mmol/L (3.5-5.5); Sodium, Blood 133 mmol/L (136-145); Total Protein, Blood 7.1 g/dL (6.4-8.2)
[2020-03-26] MEDS ORDERED: Prednisone20 MG PO (23:51)
== END 2020-03-27 00:18 | disposition home or self-care (01) ==
LOC: ER 20:53
PROVIDERS: Physician Assistant
DX: J44.1 Chronic obstructive pulmonary disease with (acute) exacerbation (principal); F17.210 Nicotine dependence, cigarettes, uncomplicated; Z79.899 Other long term (current) drug therapy
CPT/HCPCS: 71045; 80053; 82803; 85025; 93005; 93010; 99285-25

== ENCOUNTER 2020-04-25 20:04 | Observation (INO) | payer MEDICARE, OTHER ==
[~2020-04-25] VITALS: Ht 165.1 cm; Wt 46.2 kg
[2020-04-25] MEDS ORDERED: LORA.5 (20:22)
[2020-04-25] MEDS ORDERED: MORP20L (20:23)
[2020-04-25 20:50] LABS: BASOPHILS ABSOLUTE AUTO 0.04 K/mm3 (0.00-0.23); BASOPHILS PERCENT AUTO 1 % (0-2); EOSINOPHILS ABSOLUTE AUTO 0.14 K/mm3 (0.00-0.68); EOSINOPHILS PERCENT AUTO 2 % (0-6); Hematocrit 37.6 % (33.0-51.0); Hemoglobin 12.4 g/dL (11.5-16.0); IMMATURE GRAN ABSOLUTE AUTO 0.02 K/mm3 (0.00-0.10); IMMATURE GRAN PERCENT AUTO 0 % (0-1); LYMPHOCYTES ABSOLUTE AUTO 1.83 K/mm3 (0.84-5.20); LYMPHOCYTES PERCENT AUTO 27 % (21-46); MONOCYTES ABSOLUTE AUTO 0.73 K/mm3 (0.16-1.47); MONOCYTES PERCENT AUTO 11 % (4-13); Mean Corpuscular HGB 30.8 pg (26.0-34.0); Mean Corpuscular Volume 94 fL (80-100); Mean Platelet Volume 11.3 fL (9.1-12.4); NEUTROPHILS ABSOLUTE AUTO 4.14 K/mm3 (1.96-9.15); NEUTROPHILS PERCENT AUTO 60 % (41-73); Platelet Count 258 K/mm3 (150-400); RDW Coefficient Variation 13.4 % (11.7-14.2); RDW Standard Deviation 46.1 fL (35.1-46.3); Red Blood Cell Count 4.02 M/mm3 (3.80-5.20)
[2020-04-25 21:07] LABS: Alanine Aminotransfer (ALT/SGP 16 U/L (12-78); Albumin, Blood 2.9 g/dL (3.4-5.0); Albumin/Globulin Ratio 0.7 (0.8-1.8); Alk Phos 83 U/L (50-136); Anion Gap 5 mmol/L (6-16); Aspartate Aminotrans (AST/SGOT 11 U/L (12-37); Bilirubin, Total 0.7 mg/dL (0.1-1.0); Blood Urea Nitrogen 7 mg/dL (8-24); Bun/Creatinine Ratio 15.6 (12.0-20.0); CO2, Blood 33 mmol/L (21-32); Calcium, Blood 8.3 mg/dL (8.5-10.1); Chloride, Blood 95 mmol/L (98-108); Creatinine, Blood 0.45 mg/dL (0.40-1.00); Globulin, Blood 3.9 g/dL (2.2-4.0); Glomerular Filtration Rate >60 (60-); Glucose, Blood 93 mg/dL (70-99); Potassium, Blood 4.1 mmol/L (3.5-5.5); Sodium, Blood 133 mmol/L (136-145); Total Protein, Blood 6.8 g/dL (6.4-8.2); Troponin I <0.015 ng/mL (0.000-0.040)
[2020-04-25 21:40] LABS: Base Excess Venous 9.8 mmol/L; Bicarbonate Venous 31.1 mmol/L (24.0-30.0); PCO2 Venous 69.8 mmHg (38-42); PO2 Venous 66.9 mmHg (38-42); pH Blood Venous 7.32 (7.34-7.37)
[2020-04-25 22:13] LABS: Influenza A, PCR NEGATIVE (NEGATIVE); Influenza B, PCR NEGATIVE (NEGATIVE); Resp Syncytial Virus, PCR NEGATIVE (NEGATIVE); SARS-Cov-2 (COVID-19) PCR, MMC NEGATIVE (NEGATIVE)
--- NOTE | 2020-04-26 04:46 | NUR ---
SHIFT SUMMARY PT WAS NEW ER ADMIT THIS SHIFT (004), NO ACUTE CHANGES SINCE ASSUMING CARE, NO C/O ANY KIND, A&O, ABLE TO MAKE NEEDS KNOWN, SLEPT T/O THE NIGHT & SLEEPING AT THIS TIME, CALL LIGHT IN REACH, BED ALARM ACTIVE, WILL CONT TO MONITOR UNTIL REPORT GIVEN TO DAY RN.
[2020-04-26 08:34] LABS: BASOPHILS ABSOLUTE AUTO 0.01 K/mm3 (0.00-0.23); BASOPHILS PERCENT AUTO 0 % (0-2); EOSINOPHILS PERCENT AUTO 0 % (0-6); Hematocrit 38.3 % (33.0-51.0); Hemoglobin 12.4 g/dL (11.5-16.0); IMMATURE GRAN ABSOLUTE AUTO 0.02 K/mm3 (0.00-0.10); IMMATURE GRAN PERCENT AUTO 1 % (0-1); LYMPHOCYTES ABSOLUTE AUTO 0.58 K/mm3 (0.84-5.20); LYMPHOCYTES PERCENT AUTO 15 % (21-46); MONOCYTES ABSOLUTE AUTO 0.08 K/mm3 (0.16-1.47); MONOCYTES PERCENT AUTO 2 % (4-13); Mean Corpuscular HGB 30.2 pg (26.0-34.0); Mean Corpuscular HGB Conc 32.4 g/dL (31.5-36.5); Mean Corpuscular Volume 93 fL (80-100); Mean Platelet Volume 11.1 fL (9.1-12.4); NEUTROPHILS ABSOLUTE AUTO 3.18 K/mm3 (1.96-9.15); NEUTROPHILS PERCENT AUTO 82 % (41-73); Platelet Count 207 K/mm3 (150-400); RDW Coefficient Variation 13.2 % (11.7-14.2); RDW Standard Deviation 45.2 fL (35.1-46.3); Red Blood Cell Count 4.11 M/mm3 (3.80-5.20); White Blood Cell Count 3.87 K/mm3 (4.00-11.30)
[2020-04-26 08:52] LABS: Alanine Aminotransfer (ALT/SGP 14 U/L (12-78); Albumin, Blood 2.9 g/dL (3.4-5.0); Albumin/Globulin Ratio 0.7 (0.8-1.8); Alk Phos 83 U/L (50-136); Anion Gap 5 mmol/L (6-16); Aspartate Aminotrans (AST/SGOT 8 U/L (12-37); Bilirubin, Total 0.4 mg/dL (0.1-1.0); Blood Urea Nitrogen 8 mg/dL (8-24); Bun/Creatinine Ratio 18.3 (12.0-20.0); CO2, Blood 34 mmol/L (21-32); Calcium, Blood 8.6 mg/dL (8.5-10.1); Chloride, Blood 96 mmol/L (98-108); Creatinine, Blood 0.44 mg/dL (0.40-1.00); Glomerular Filtration Rate >60 (60-); Glucose, Blood 132 mg/dL (70-99); Potassium, Blood 4.5 mmol/L (3.5-5.5); Sodium, Blood 135 mmol/L (136-145); Total Protein, Blood 6.9 g/dL (6.4-8.2)
--- NOTE | 2020-04-26 16:46 | NUR ---
ADMIT: 04/26/20 DISCHARGE: 04/26/20 DX: COPD w/ acute exacerbation CC: cpeabody ADMIT:12/26/19 DISCHARGE: DX: WEAKNESS CC: ADMIT: 12/18/19 DISCHARGE: 12/25/19 DX: ACUTE RESP FAILURE WITH HYPOXIA ADMIT: 12/22/16 DISCHARGE: 12/25/16TOC CALL: [facility] RESIDENCE: homeCAREGIVER: self and Harjinder - caregiver [phone] Nicolas Michelle- son [phone] DX: acute diastolic heart failure, chronic hypoxemic resp. failure, COPD, Pneumonia, PVD, DME: O2 and equipment, Nebulizer and suppliesCCM: none HOME HEALTH:01/07/20 [facility].SERJIO, NURSE [employer]IAL [employer].01/01 TEXTED HH, NO F2F IN DISCHARGE??? SUMMARY: 04/25/20 04/26/20 Discharge home, caregiver Cami to crab picker Simin today, return home on Hospice. Contacted [facility] to resume services today. Concerns with previous [place] notes that Simin was wanting to find a new place to live. Dr Briggs and myself s/w Simin separately and together spoke with Simin about living with her son. She wants to return home. I also received a call from Mayda at [facility], wanting a update on discharge plan. Updated her and confirmed that it was Simin's choice to return home. Prescription for oxygen concentrator for [employer] given to Simin, may not be covered under Hospice benefit.Discussed tameka call and follow up telehealth follow up visit requested by DR Briggs.
[2020-04-26] MEDS ORDERED: ACET325 PO (16:52)
[2020-04-26] MEDS ORDERED: CEFD300 PO (16:53)
[2020-04-26] MEDS ORDERED: LORA.5 PO (16:56)
[2020-04-26] MEDS ORDERED: MORPHINE CONCENTRATE PO (17:01)
--- NOTE | 2020-04-26 17:29 | NUR ---
PT DISCHARGED FROM THE UNIT. IV REMOVED. DISCHARGE INSTRUCTIONS REVIEWED. MEDICATIONS FAXED TO PHARMACY.
== END 2020-04-26 17:59 | disposition hospice, home (50) ==
LOC: ER 20:04 → MEDS 20:05
PROVIDERS: Emergency Medicine; ADMIT Internal Medicine
DX: J44.1 Chronic obstructive pulmonary disease with (acute) exacerbation (principal); J96.22 Acute and chronic respiratory failure with hypercapnia; J96.21 Acute and chronic respiratory failure with hypoxia; R64 Cachexia; L03.116 Cellulitis of left lower limb; R79.89 Other specified abnormal findings of blood chemistry; F17.210 Nicotine dependence, cigarettes, uncomplicated; E03.9 Hypothyroidism, unspecified; Z88.0 Allergy status to penicillin; Z88.2 Allergy status to sulfonamides; Z88.8 Allergy status to other drugs, medicaments and biological substances; Z20.822 Contact with and (suspected) exposure to COVID-19
CPT/HCPCS: 0241U; 36415; 71045; 80053; 82803; 83880; 84484; 85025; 85379; 93005; 93010; 94640; 94667; 94760; 96361; 96365; 96367; 96372; 96375; 96376; 97161; 97165; 97530; 97535; 99285-25; A9270; G0378; J0690; J0696; J1650; J2405; J2930; J3475; J7030; J7050

== ENCOUNTER 2020-07-21 20:20 | Emergency (ER) | payer MEDICARE, OTHER ==
[~2020-07-21] VITALS: Ht 167.6 cm; Wt 45.4 kg
[~2020-07-21 20:20] MED LIST changes: +ACET325 PO; +LORA.5; +LORA.5 PO; +MORP20L; +MORPHINE CONCENTRATE PO
[2020-07-21] MEDS ORDERED: Prednisone50 MG PO (22:32)
[2020-07-21 22:33] LABS: BASOPHILS ABSOLUTE AUTO 0.05 K/mm3 (0.00-0.23); BASOPHILS PERCENT AUTO 1 % (0-2); EOSINOPHILS ABSOLUTE AUTO 0.06 K/mm3 (0.00-0.68); EOSINOPHILS PERCENT AUTO 1 % (0-6); Hematocrit 35.1 % (33.0-51.0); Hemoglobin 11.4 g/dL (11.5-16.0); IMMATURE GRAN ABSOLUTE AUTO 0.02 K/mm3 (0.00-0.10); IMMATURE GRAN PERCENT AUTO 0 % (0-1); LYMPHOCYTES ABSOLUTE AUTO 2.33 K/mm3 (0.84-5.20); LYMPHOCYTES PERCENT AUTO 35 % (21-46); MONOCYTES ABSOLUTE AUTO 0.65 K/mm3 (0.16-1.47); MONOCYTES PERCENT AUTO 10 % (4-13); Mean Corpuscular HGB 29.1 pg (26.0-34.0); Mean Corpuscular HGB Conc 32.5 g/dL (31.5-36.5); Mean Corpuscular Volume 90 fL (80-100); Mean Platelet Volume 11.2 fL (9.1-12.4); NEUTROPHILS ABSOLUTE AUTO 3.62 K/mm3 (1.96-9.15); NEUTROPHILS PERCENT AUTO 54 % (41-73); Platelet Count 232 K/mm3 (150-400); RDW Coefficient Variation 14.3 % (11.7-14.2); RDW Standard Deviation 46.5 fL (35.1-46.3); Red Blood Cell Count 3.92 M/mm3 (3.80-5.20); White Blood Cell Count 6.73 K/mm3 (4.00-11.30)
[2020-07-21 22:45] LABS: Anion Gap 3 mmol/L (6-16); Blood Urea Nitrogen 8 mg/dL (8-24); Bun/Creatinine Ratio 15.5 (12.0-20.0); CO2, Blood 35 mmol/L (21-32); Calcium, Blood 8.9 mg/dL (8.5-10.1); Chloride, Blood 90 mmol/L (98-108); Creatinine, Blood 0.52 mg/dL (0.40-1.00); Glomerular Filtration Rate >60 (60-); Glucose, Blood 121 mg/dL (70-99); Sodium, Blood 128 mmol/L (136-145); Troponin I <0.015 ng/mL (0.000-0.040)
== END 2020-07-21 23:46 | disposition home or self-care (01) ==
LOC: ER 20:20
PROVIDERS: Student in an Organized Health Care Education/Training Program
DX: J44.1 Chronic obstructive pulmonary disease with (acute) exacerbation (principal); Z88.2 Allergy status to sulfonamides; Z88.8 Allergy status to other drugs, medicaments and biological substances; Z79.899 Other long term (current) drug therapy
CPT/HCPCS: 71045; 80048; 84484; 85025; 93005; 93010; 99285-25; A9270

== ENCOUNTER 2020-08-12 20:33 | Emergency (ER) | payer MEDICARE, OTHER ==
[~2020-08-12] VITALS: Ht 167.6 cm; Wt 44.9 kg
[2020-08-12 21:25] LABS: Source, Urine Catheter
[2020-08-12 21:29] LABS: Bilirubin, Urine Neg (Neg); Blood, Urine 1+ (Neg); Color, Urine Yellow (P-Yellow); Glucose Qualitative, Urine Neg (Neg); Ketones, Urine Neg (Neg); Leukocyte Esterase, Urine Neg (Neg); Nitrite, Urine Neg (Neg); Protein, Urine 1+ (Neg); Urobilinogen, Urine 1+ (Normal)
[2020-08-12 21:37] LABS: Appearance, Urine Hazy (Clear); Bacteria Few /hpf; Squamous Epithelial Cells Not Seen /hpf (Few); White Blood Cells, Urine 0-2 /hpf (0-5)
[2020-08-12 21:38] LABS: Amorphous Mod (0-Heavy)
[2020-08-12 21:52] LABS: Alanine Aminotransfer (ALT/SGP 14 U/L (12-78); Albumin, Blood 3.2 g/dL (3.4-5.0); Albumin/Globulin Ratio 0.9 (0.8-1.8); Alk Phos 77 U/L (50-136); Anion Gap 2 mmol/L (6-16); Aspartate Aminotrans (AST/SGOT 13 U/L (12-37); Bilirubin, Total 0.3 mg/dL (0.1-1.0); Blood Urea Nitrogen 8 mg/dL (8-24); Bun/Creatinine Ratio 13.3 (12.0-20.0); CO2, Blood 37 mmol/L (21-32); Calcium, Blood 8.6 mg/dL (8.5-10.1); Chloride, Blood 95 mmol/L (98-108); Globulin, Blood 3.6 g/dL (2.2-4.0); Glomerular Filtration Rate >60 (60-); Glucose, Blood 97 mg/dL (70-99); Sodium, Blood 134 mmol/L (136-145); Total Protein, Blood 6.8 g/dL (6.4-8.2)
[2020-08-12 21:57] LABS: BASOPHILS ABSOLUTE AUTO 0.06 K/mm3 (0.00-0.23); BASOPHILS PERCENT AUTO 1 % (0-2); EOSINOPHILS ABSOLUTE AUTO 0.23 K/mm3 (0.00-0.68); EOSINOPHILS PERCENT AUTO 4 % (0-6); Hematocrit 34.8 % (33.0-51.0); Hemoglobin 11.1 g/dL (11.5-16.0); IMMATURE GRAN ABSOLUTE AUTO 0.01 K/mm3 (0.00-0.10); IMMATURE GRAN PERCENT AUTO 0 % (0-1); LYMPHOCYTES ABSOLUTE AUTO 1.58 K/mm3 (0.84-5.20); LYMPHOCYTES PERCENT AUTO 25 % (21-46); MONOCYTES ABSOLUTE AUTO 0.66 K/mm3 (0.16-1.47); MONOCYTES PERCENT AUTO 10 % (4-13); Mean Corpuscular HGB 29.1 pg (26.0-34.0); Mean Corpuscular HGB Conc 31.9 g/dL (31.5-36.5); Mean Corpuscular Volume 91 fL (80-100); Mean Platelet Volume 11.2 fL (9.1-12.4); NEUTROPHILS ABSOLUTE AUTO 3.88 K/mm3 (1.96-9.15); NEUTROPHILS PERCENT AUTO 60 % (41-73); Platelet Count 245 K/mm3 (150-400); RDW Coefficient Variation 14.7 % (11.7-14.2); RDW Standard Deviation 49.4 fL (35.1-46.3); Red Blood Cell Count 3.82 M/mm3 (3.80-5.20); White Blood Cell Count 6.42 K/mm3 (4.00-11.30)
== END 2020-08-13 03:15 | disposition home or self-care (01) ==
LOC: ER 20:33
PROVIDERS: Emergency Medicine
DX: K59.00 Constipation, unspecified (principal); E86.0 Dehydration; R34 Anuria and oliguria; F17.210 Nicotine dependence, cigarettes, uncomplicated; J44.9 Chronic obstructive pulmonary disease, unspecified; Z88.2 Allergy status to sulfonamides; Z88.8 Allergy status to other drugs, medicaments and biological substances; Z79.899 Other long term (current) drug therapy
CPT/HCPCS: 51798; 74022; 80053; 81001; 85025; 94640; 96360; 96361; 99284-25; J7030

== ENCOUNTER 2020-09-03 13:19 | Inpatient (IN) | payer MEDICARE, OTHER ==
[~2020-09-03] VITALS: Ht 165.1 cm; Wt 47.6 kg
[2020-09-03 14:27] LABS: BASOPHILS ABSOLUTE AUTO 0.03 K/mm3 (0.00-0.23); BASOPHILS PERCENT AUTO 0 % (0-2); EOSINOPHILS ABSOLUTE AUTO 0.01 K/mm3 (0.00-0.68); EOSINOPHILS PERCENT AUTO 0 % (0-6); Hematocrit 31.9 % (33.0-51.0); IMMATURE GRAN ABSOLUTE AUTO 0.03 K/mm3 (0.00-0.10); IMMATURE GRAN PERCENT AUTO 0 % (0-1); LYMPHOCYTES ABSOLUTE AUTO 0.88 K/mm3 (0.84-5.20); LYMPHOCYTES PERCENT AUTO 12 % (21-46); MONOCYTES ABSOLUTE AUTO 0.51 K/mm3 (0.16-1.47); MONOCYTES PERCENT AUTO 7 % (4-13); Mean Corpuscular HGB 29.6 pg (26.0-34.0); Mean Corpuscular HGB Conc 34.5 g/dL (31.5-36.5); Mean Corpuscular Volume 86 fL (80-100); Mean Platelet Volume 11.5 fL (9.1-12.4); NEUTROPHILS PERCENT AUTO 80 % (41-73); Platelet Count 150 K/mm3 (150-400); RDW Coefficient Variation 13.4 % (11.7-14.2); Red Blood Cell Count 3.71 M/mm3 (3.80-5.20); White Blood Cell Count 7.36 K/mm3 (4.00-11.30)
[2020-09-03 14:59] LABS: Troponin I <0.015 ng/mL (0.000-0.040)
[2020-09-03 15:02] LABS: Alanine Aminotransfer (ALT/SGP 15 U/L (12-78); Albumin, Blood 3.1 g/dL (3.4-5.0); Albumin/Globulin Ratio 0.8 (0.8-1.8); Alk Phos 78 U/L (50-136); Anion Gap 9 mmol/L (6-16); Aspartate Aminotrans (AST/SGOT 16 U/L (12-37); Bilirubin, Total 1.2 mg/dL (0.1-1.0); Blood Urea Nitrogen 5 mg/dL (8-24); Bun/Creatinine Ratio 16.9 (12.0-20.0); CO2, Blood 27 mmol/L (21-32); Calcium, Blood 7.8 mg/dL (8.5-10.1); Chloride, Blood 78 mmol/L (98-108); Globulin, Blood 3.7 g/dL (2.2-4.0); Glomerular Filtration Rate >60 (60-); Glucose, Blood 91 mg/dL (70-99); Potassium, Blood 4.3 mmol/L (3.5-5.5); Sodium, Blood 114 mmol/L (136-145); Total Protein, Blood 6.8 g/dL (6.4-8.2)
[2020-09-03 17:13] LABS: Source, Urine Catheter
[2020-09-03 17:28] LABS: Appearance, Urine Hazy (Clear); Bilirubin, Urine Neg (Neg); Blood, Urine 4+ (Neg); Color, Urine Yellow (P-Yellow); Glucose Qualitative, Urine Neg (Neg); Ketones, Urine 3+ (Neg); Leukocyte Esterase, Urine 1+ (Neg); Nitrite, Urine Neg (Neg); Protein, Urine 1+ (Neg); Urobilinogen, Urine NORM (Normal)
[2020-09-03 17:37] LABS: Bacteria Many /hpf; Squamous Epithelial Cells Mod /hpf (Few)
--- NOTE | 2020-09-03 18:43 | NUR ---
PT ARRIVED TO ROOM, ORIENTED TO HOSPITAL PROCEDURE, CALL LIGHT. BED IN LOW POSITION. IV FLUIDS STARTED PER ORDER. SCD'S PLACED ON BLE. PT DENIES N/V/P. PT REFUSED CATHETERIZATION AND IS CURRENTLY ON BEDPAN TO URINATE. CONTINUES PURSED LIP BREATHING AT THIS TIME.
[2020-09-03 19:22] LABS: Anion Gap 6 mmol/L (6-16); Blood Urea Nitrogen 5 mg/dL (8-24); Bun/Creatinine Ratio 18.5 (12.0-20.0); CO2, Blood 26 mmol/L (21-32); Chloride, Blood 85 mmol/L (98-108); Creatinine, Blood 0.27 mg/dL (0.40-1.00); Glomerular Filtration Rate >60 (60-); Glucose, Blood 97 mg/dL (70-99); Potassium, Blood 4.2 mmol/L (3.5-5.5); Sodium, Blood 117 mmol/L (136-145)
[2020-09-03 23:15] LABS: Source, Urine Catheter
[2020-09-03 23:25] LABS: Appearance, Urine Clear (Clear); Bilirubin, Urine Neg (Neg); Blood, Urine 1+ (Neg); Color, Urine Yellow (P-Yellow); Glucose Qualitative, Urine Neg (Neg); Ketones, Urine 3+ (Neg); Leukocyte Esterase, Urine 3+ (Neg); Nitrite, Urine Neg (Neg); Protein, Urine Neg (Neg); Urobilinogen, Urine NORM (Normal); White Blood Cells, Urine 25-50 /hpf (0-5)
[2020-09-03 23:26] LABS: Bacteria Mod /hpf; Red Blood Cells, Urine 0-2 /hpf (0-2); Squamous Epithelial Cells Mod /hpf (Few)
[2020-09-04 06:21] LABS: BASOPHILS ABSOLUTE AUTO 0.02 K/mm3 (0.00-0.23); BASOPHILS PERCENT AUTO 0 % (0-2); EOSINOPHILS PERCENT AUTO 0 % (0-6); Hematocrit 33.9 % (33.0-51.0); Hemoglobin 11.4 g/dL (11.5-16.0); IMMATURE GRAN ABSOLUTE AUTO 0.01 K/mm3 (0.00-0.10); IMMATURE GRAN PERCENT AUTO 0 % (0-1); LYMPHOCYTES ABSOLUTE AUTO 1.17 K/mm3 (0.84-5.20); LYMPHOCYTES PERCENT AUTO 22 % (21-46); MONOCYTES ABSOLUTE AUTO 0.68 K/mm3 (0.16-1.47); MONOCYTES PERCENT AUTO 13 % (4-13); Mean Corpuscular HGB 29.2 pg (26.0-34.0); Mean Corpuscular HGB Conc 33.6 g/dL (31.5-36.5); Mean Corpuscular Volume 87 fL (80-100); NEUTROPHILS ABSOLUTE AUTO 3.49 K/mm3 (1.96-9.15); NEUTROPHILS PERCENT AUTO 65 % (41-73); Platelet Count 158 K/mm3 (150-400); RDW Coefficient Variation 13.5 % (11.7-14.2); RDW Standard Deviation 42.7 fL (35.1-46.3); White Blood Cell Count 5.37 K/mm3 (4.00-11.30)
--- NOTE | 2020-09-04 06:48 | NUR ---
SHIFT SUMMARY A/OX3, PLEASANT AND COOPERATIVE WITH CARE. NS RUNNING AT 75. CURRENTLY ON BASELINE 3.5L VIA NC. PURSED LIP BREATHING NOTED. SATS REMAIN GREATER THAN 92. VSS, NO ACUTE CHANGES AT THIS TIME. BED IN LOWEST POSITION WITH CALL LIGHT IN REACH WITH CALL LIGHT IN REACH. WILL CONTINUE TO MONITOR AND REPORT TO ONCOMING RN.
[2020-09-04 07:18] LABS: Alanine Aminotransfer (ALT/SGP 14 U/L (12-78); Albumin/Globulin Ratio 0.9 (0.8-1.8); Alk Phos 74 U/L (50-136); Anion Gap 7 mmol/L (6-16); Aspartate Aminotrans (AST/SGOT 13 U/L (12-37); Bilirubin, Total 0.6 mg/dL (0.1-1.0); Blood Urea Nitrogen 7 mg/dL (8-24); Bun/Creatinine Ratio 17.5 (12.0-20.0); CO2, Blood 27 mmol/L (21-32); Calcium, Blood 8.2 mg/dL (8.5-10.1); Chloride, Blood 89 mmol/L (98-108); Globulin, Blood 3.5 g/dL (2.2-4.0); Glomerular Filtration Rate >60 (60-); Glucose, Blood 76 mg/dL (70-99); Magnesium, Blood 1.9 mg/dL (1.6-2.4); Phosphorus, Blood 3.3 mg/dL (2.5-4.9); Potassium, Blood 4.3 mmol/L (3.5-5.5); Sodium, Blood 123 mmol/L (136-145); Total Protein, Blood 6.5 g/dL (6.4-8.2)
--- NOTE | 2020-09-04 18:24 | NUR ---
SHIFT SUMMARY: PT IS A/O X4. CONTINUES TO BE DYSPNEIC WITH EXERTION BUT NO SIGNS OF SOB AT REST AT THIS TIME. NA LEVELS CONTINUE TO RISE. TOLERATING CLINIMIX WELL. ATE HER FIRST MEAL THIS EVENING AND DID NOT HAVE ANY COMPLAINTS OF NAUSEA. CATHETER PATENT AND DRAINING CLEAR YELLOW URINE. NO ACUTE CONCERNS THIS SHIFT.
--- NOTE | 2020-09-05 04:48 | NUR ---
SHIFT SUMMARY A/OX3, PLEASANT AND COOPERATIVE WITH CARE. CLINIMIX RUNNING AT 50. MARK PATENT AND DRAINING CLEAR YELLOW URINE. UP TO BSC WITH 1 ASSIST, 2 SOFT BROWN BM'S THIS SHIFT. DENIES PAIN AT THIS TIME. VSS, NO ACUTE CHANGES AT THIS TIME. BED IN LOWEST POSITION WITH CALL LIGHT IN REACH. WILL CONTINUE TO MONITOR AND REPORT TO ONCOMING RN.
[2020-09-05 05:00] LABS: BASOPHILS ABSOLUTE AUTO 0.02 K/mm3 (0.00-0.23); BASOPHILS PERCENT AUTO 0 % (0-2); EOSINOPHILS ABSOLUTE AUTO 0.06 K/mm3 (0.00-0.68); EOSINOPHILS PERCENT AUTO 1 % (0-6); Hematocrit 34.2 % (33.0-51.0); Hemoglobin 11.3 g/dL (11.5-16.0); IMMATURE GRAN ABSOLUTE AUTO 0.01 K/mm3 (0.00-0.10); IMMATURE GRAN PERCENT AUTO 0 % (0-1); LYMPHOCYTES ABSOLUTE AUTO 1.18 K/mm3 (0.84-5.20); LYMPHOCYTES PERCENT AUTO 18 % (21-46); MONOCYTES ABSOLUTE AUTO 0.87 K/mm3 (0.16-1.47); MONOCYTES PERCENT AUTO 14 % (4-13); Mean Corpuscular HGB 29.5 pg (26.0-34.0); Mean Corpuscular Volume 89 fL (80-100); Mean Platelet Volume 11.6 fL (9.1-12.4); NEUTROPHILS ABSOLUTE AUTO 4.27 K/mm3 (1.96-9.15); NEUTROPHILS PERCENT AUTO 67 % (41-73); Platelet Count 174 K/mm3 (150-400); RDW Coefficient Variation 13.7 % (11.7-14.2); RDW Standard Deviation 45.1 fL (35.1-46.3); Red Blood Cell Count 3.83 M/mm3 (3.80-5.20); White Blood Cell Count 6.41 K/mm3 (4.00-11.30)
[2020-09-05 05:36] LABS: Anion Gap 3 mmol/L (6-16); Blood Urea Nitrogen 12 mg/dL (8-24); Bun/Creatinine Ratio 29.4 (12.0-20.0); CO2, Blood 34 mmol/L (21-32); Calcium, Blood 8.4 mg/dL (8.5-10.1); Chloride, Blood 92 mmol/L (98-108); Creatinine, Blood 0.41 mg/dL (0.40-1.00); Glomerular Filtration Rate >60 (60-); Glucose, Blood 91 mg/dL (70-99); Potassium, Blood 4.1 mmol/L (3.5-5.5); Sodium, Blood 129 mmol/L (136-145)
--- NOTE | 2020-09-05 17:20 | NUR ---
Update 09/05/20: Pt. declined to participate in PT today. Palliative care will be seeing the pt. Pt. has previously on hospice services based on notes in [facility] EMR system. Home health was ordered in May of 2020 through [facility] home health. At that time pt. stated that she just needed helping with cooking and cleaning. Home health services declined. Will discuss discharge planning with pt. in the am after she has met with paliative care. Update 09/03/20: Pt. not yet appropriate for discharge.
--- NOTE | 2020-09-05 18:06 | NUR ---
PATIENT IS ALERT AND ORIENTED AND COOPERATIVE WITH CARE. THE PATIENT LIVES WITH HER FRIEND. THE PATIENT WANTS TO BE PUT BACK ON HOSPICE. PATIENT HAS A POOR APPETITE BUT ATE A GOOD PORTION OF HER DINNER TONIGHT. SHE WORKED WITH OT TODAY AND TRANSFERRED TO THE CHAIR. MARK IS IN PLACE AND DRAINING. ON 3.5L O2 WHICH IS HER BASELINE. VSS. WILL CONTINUE TO MONITOR
--- NOTE | 2020-09-06 04:37 | NUR ---
SHIFT SUMMARY A/OX3, PLEASANT AND COOPERATIVE WITH CARE. ANXIOUS AT BEGINNING OF SHIFT, MEDICATED PER EMAR. CLINIMIX RUNNING AT 50ML/HR. MARK PATENT AND DRAINING CLEAR YELLOW URINE. TELE SR IN THE 60S. VSS, NO ACUTE CHANGES AT THIS TIME. BED IN LOWEST POSITION WITH CALL LIGHT IN REACH. WILL CONTINUE TO MONITOR AND REPORT TO ONCOMING RN.
[2020-09-06 05:44] LABS: Anion Gap 2 mmol/L (6-16); Blood Urea Nitrogen 12 mg/dL (8-24); Bun/Creatinine Ratio 40.7 (12.0-20.0); CO2, Blood 36 mmol/L (21-32); Calcium, Blood 8.3 mg/dL (8.5-10.1); Chloride, Blood 93 mmol/L (98-108); Glomerular Filtration Rate >60 (60-); Glucose, Blood 95 mg/dL (70-99); Potassium, Blood 4.2 mmol/L (3.5-5.5); Sodium, Blood 131 mmol/L (136-145)
[2020-09-06] MEDS ORDERED: BUDESONIDE0.5 MG/2 M INH (11:46)
[2020-09-06] MEDS ORDERED: ACET325 PO (11:46)
--- NOTE | 2020-09-06 12:01 | NUR ---
Update 09/06/2020: Pt. appropriate for discharge. Discharged on [facility]. Pt. states that she lives with her caregiver Savannah and her family. Strong support system per patient. Denied need for DME. Denied concerns with safety in the home or issues with mobility. [facility] will be out to perform hospice intake tomorrow.
--- NOTE | 2020-09-06 15:10 | NUR ---
Pt still awaiting a ride home. She was discharged earlier today. This RN called pt's caregiver and friend, Savannah at 1210, 1250, 1430. Messages left for return call. Pt has also been trying to call her from in the room. Simin is complaining of increased anxiety - which Dr. Medina ordered a one time dose of lorazepam to assist with symptom. Will continue to monitor for symptoms. Pt discharging home with hospice services and will ask for additional orders if neccesary to keep pt comfortable. No other complaints for now - pt denies pain, denies nausea.
--- NOTE | 2020-09-06 15:31 | NUR ---
Reviewed with Luis, charge nurse. Pt has told me that Savannah does not drive and will need to get a ride in here to pick her up. Spoke with Shruthi, skin care therapist. She was unaware that Savannah isn't a driving individual - for whatever reason. Still have not been able to connect with Savannah to ask her to please come in for patient discharge. Will continue to monitor and assist with discharge when transportation is solved.
--- NOTE | 2020-09-06 18:44 | NUR ---
Worked with Shruthi from [facility]. She states that pt will be going home with [facility]. Transport arrived. Pt told transport that she will not be going to the trailer house listed as her address. [place], just in a neighbor's house. She reports that her partner was no longer being safe with her and she had to move in with friends. Transport is familiar with pt and states that he can get her home. She states she can point the house out, but does not know the number. Message sent to Shruthi to notify of this.
== END 2020-09-06 18:22 | disposition hospice, home (50) | DRG 191 ==
LOC: ER 13:19 → MEDS 16:10 → ENPENDDIS 09-06 10:31 → MEDS 09-06 18:22
PROVIDERS: Emergency Medicine; ADMIT Hospitalist
DX: J43.9 Emphysema, unspecified (principal); E87.1 Hypo-osmolality and hyponatremia; J96.11 Chronic respiratory failure with hypoxia; N13.6 Pyonephrosis; R64 Cachexia; J98.11 Atelectasis; R91.1 Solitary pulmonary nodule; E03.9 Hypothyroidism, unspecified; I73.9 Peripheral vascular disease, unspecified; E78.5 Hyperlipidemia, unspecified; Z88.2 Allergy status to sulfonamides; Z88.8 Allergy status to other drugs, medicaments and biological substances; Z98.890 Other specified postprocedural states; F17.210 Nicotine dependence, cigarettes, uncomplicated; F41.9 Anxiety disorder, unspecified
CPT/HCPCS: 36415; 71045; 71250; 76770; 80048; 80053; 81001; 82436; 82533; 83735; 83930; 83935; 84100; 84145; 84300; 84443; 84484; 85025; 87070; 87077; 87086; 87186; 87205; 93005; 93010; 94640; 94667; 94668; 94760; 96361; 96374; 97110; 97162; 97165; 97530; 99285-25; A9270; J0456; J0696; J1100; J1650; J2405; J7030; J7050; J7131

== ENCOUNTER 2021-11-09 04:10 | Emergency (ER) | payer MEDICARE, OTHER ==
[~2021-11-09] VITALS: Ht 167.6 cm; Wt 45.4 kg
[~2021-11-09 04:10] MED LIST changes: +ALBU90OI INH; +BUDESONIDE0.5 MG/2 M INH; +QUETIAPINE FUMA25 MG PO
[2021-11-09 04:39] LABS: BASOPHILS ABSOLUTE AUTO 0.07 K/mm3 (0.00-0.23); BASOPHILS PERCENT AUTO 1 % (0-2); EOSINOPHILS ABSOLUTE AUTO 0.15 K/mm3 (0.00-0.68); EOSINOPHILS PERCENT AUTO 2 % (0-6); Hematocrit 40.4 % (33.0-51.0); IMMATURE GRAN ABSOLUTE AUTO 0.03 K/mm3 (0.00-0.10); IMMATURE GRAN PERCENT AUTO 0 % (0-1); LYMPHOCYTES ABSOLUTE AUTO 1.79 K/mm3 (0.84-5.20); LYMPHOCYTES PERCENT AUTO 20 % (21-46); MONOCYTES ABSOLUTE AUTO 0.86 K/mm3 (0.16-1.47); MONOCYTES PERCENT AUTO 9 % (4-13); Mean Corpuscular HGB 28.7 pg (26.0-34.0); Mean Corpuscular HGB Conc 32.2 g/dL (31.5-36.5); Mean Corpuscular Volume 89 fL (80-100); Mean Platelet Volume 11.6 fL (9.1-12.4); NEUTROPHILS ABSOLUTE AUTO 6.28 K/mm3 (1.96-9.15); NEUTROPHILS PERCENT AUTO 68 % (41-73); Platelet Count 231 K/mm3 (150-400); RDW Coefficient Variation 14.7 % (11.7-14.2); Red Blood Cell Count 4.53 M/mm3 (3.80-5.20); White Blood Cell Count 9.18 K/mm3 (4.00-11.30)
[2021-11-09 04:56] LABS: Bun/Creatinine Ratio 24.2 (12.0-20.0); Calcium, Blood 8.6 mg/dL (8.5-10.1); Creatinine, Blood 0.41 mg/dL (0.40-1.00); Potassium, Blood 4.1 mmol/L (3.5-5.5)
[2021-11-09 05:03] LABS: Source, Urine Clean Catch
[2021-11-09 05:06] LABS: Bilirubin, Urine Neg (Neg); Blood, Urine 3+ (Neg); Glucose Qualitative, Urine Neg (Neg); Ketones, Urine Neg (Neg); Leukocyte Esterase, Urine 3+ (Neg); Nitrite, Urine Pos (Neg); Protein, Urine Neg (Neg); Urobilinogen, Urine NORM (Normal)
[2021-11-09 05:14] LABS: Appearance, Urine Hazy (Clear); Color, Urine Pale Yellow (P-Yellow)
[2021-11-09] MEDS ORDERED: PRED20 PO (05:16)
[2021-11-09 05:18] LABS: Bacteria Many /hpf; Squamous Epithelial Cells Rare /hpf (Few); White Blood Cells, Urine TNTC /hpf (0-5)
[2021-11-09] MEDS ORDERED: CEPH500 PO (05:33)
== END 2021-11-09 06:51 | disposition home or self-care (01) ==
LOC: ER 04:10
PROVIDERS: Emergency Medicine
DX: S20.219A Contusion of unspecified front wall of thorax, initial encounter (principal); W19.XXXA Unspecified fall, initial encounter; E87.1 Hypo-osmolality and hyponatremia; E86.0 Dehydration; N39.0 Urinary tract infection, site not specified; J44.9 Chronic obstructive pulmonary disease, unspecified; F17.210 Nicotine dependence, cigarettes, uncomplicated; Z79.899 Other long term (current) drug therapy; Z88.2 Allergy status to sulfonamides; Z88.8 Allergy status to other drugs, medicaments and biological substances
CPT/HCPCS: 36415; 51701; 71045; 80048; 81001; 85025; 87077; 87086; 87186; 96365-59; 96375-59; 99284-25; J0696; J2930

== ENCOUNTER → 2021-11-21 | Outpatient (CLI) | payer MEDICARE, OTHER ==
[~2021-11-21] MED LIST changes: +CEPH500 PO
== END | disposition home or self-care (01) ==
LOC: LAB 15:50 → LAB SHORT 15:50
DX: R32 Unspecified urinary incontinence (principal)
CPT/HCPCS: 87086

== ENCOUNTER 2022-11-16 15:14 | Inpatient (IN) | payer OTHER ==
[~2022-11-16] VITALS: Ht 165.1 cm; Wt 51.2 kg
[~2022-11-16 15:14] MED LIST changes: +Cymbalta20 MG PO
[2022-11-16] MEDS ORDERED: XARELTO20 M1 PO (16:02)
[2022-11-16] MEDS ORDERED: CELEXA10 MG PO (16:03)
[2022-11-16 16:38] LABS: BASOPHILS ABSOLUTE AUTO 0.03 K/mm3 (0.00-0.23); BASOPHILS PERCENT AUTO 0 % (0-2); EOSINOPHILS ABSOLUTE AUTO 0.07 K/mm3 (0.00-0.68); EOSINOPHILS PERCENT AUTO 1 % (0-6); Hematocrit 30.4 % (33.0-51.0); Hemoglobin 9.6 g/dL (11.5-16.0); IMMATURE GRAN ABSOLUTE AUTO 0.04 K/mm3 (0.00-0.10); IMMATURE GRAN PERCENT AUTO 0 % (0-1); LYMPHOCYTES ABSOLUTE AUTO 1.02 K/mm3 (0.84-5.20); LYMPHOCYTES PERCENT AUTO 9 % (21-46); MONOCYTES ABSOLUTE AUTO 1.27 K/mm3 (0.16-1.47); MONOCYTES PERCENT AUTO 12 % (4-13); Mean Corpuscular HGB 25.3 pg (26.0-34.0); Mean Corpuscular HGB Conc 31.6 g/dL (31.5-36.5); Mean Corpuscular Volume 80 fL (80-100); Mean Platelet Volume 11.9 fL (9.1-12.4); NEUTROPHILS ABSOLUTE AUTO 8.42 K/mm3 (1.96-9.15); NEUTROPHILS PERCENT AUTO 78 % (41-73); Platelet Count 270 K/mm3 (150-400); RDW Coefficient Variation 17.9 % (11.7-14.2); RDW Standard Deviation 52.7 fL (35.1-46.3); White Blood Cell Count 10.85 K/mm3 (4.00-11.30)
[2022-11-16 17:08] LABS: Albumin, Blood 2.3 g/dL (3.4-5.0); Albumin/Globulin Ratio 0.5 (0.8-1.8); Bilirubin, Total 0.4 mg/dL (0.1-1.0); Bun/Creatinine Ratio 12.6 (12.0-20.0); Calcium, Blood 7.9 mg/dL (8.5-10.1); Creatinine, Blood 0.32 mg/dL (0.40-1.00); Potassium, Blood 3.9 mmol/L (3.5-5.5); Total Protein, Blood 7.3 g/dL (6.4-8.2)
[2022-11-16 18:06] LABS: Magnesium, Blood 1.9 mg/dL (1.6-2.4); Phosphorus, Blood 2.9 mg/dL (2.5-4.9)
[2022-11-16 20:19] LABS: Influenza A, PCR NEGATIVE (NEGATIVE); Influenza B, PCR NEGATIVE (NEGATIVE); Resp Syncytial Virus, PCR NEGATIVE (NEGATIVE); SARS-Cov-2 (COVID-19) PCR, MMC NEGATIVE (NEGATIVE)
[2022-11-16 21:16] VITALS: BP 142/56
[2022-11-16 21:33] LABS: Bun/Creatinine Ratio 9.6 (12.0-20.0); Creatinine, Blood 0.31 mg/dL (0.40-1.00); Potassium, Blood 3.7 mmol/L (3.5-5.5)
--- NOTE | 2022-11-16 23:33 | NUR ---
TRANSFER UPDATE REPORT RECIEVED FROM ER NURSE AT 2040. PT ARRIVED TO PCU AT 2100 VIA MARIAN ARAUJO ON 3L NC. PT SLID TO PCU BED VIA SLIDE SHEET AND 3 STAFF MEMBERS PER PT REQUEST. PT REPORTS THAT SHE GETS "EXTREMELY SHORT OF BREATH WHEN GETTING UP." PT SOILED AT TIME OF ARRIVAL. PT CLEANED AND BEDDING CHANGED. PT SKIN HAS REDDENED AREA AROUND RECTOM. PT BREATHING LABORED AT TIME OF ARRIVAL. PT A/OX4 AT TIME OF ARRIVAL AND ABLE TO ANSWER ADMISSION QUESTIONS. PT ORIENTED TO ROOM AND CALL LIGHT.
[2022-11-17 00:15] VITALS: BP 119/61
[2022-11-17 03:35] LABS: Hematocrit 28.7 % (33.0-51.0); Hemoglobin 9.1 g/dL (11.5-16.0); Mean Corpuscular HGB 25.1 pg (26.0-34.0); Mean Corpuscular HGB Conc 31.7 g/dL (31.5-36.5); Mean Corpuscular Volume 79 fL (80-100); Mean Platelet Volume 11.5 fL (9.1-12.4); Platelet Count 287 K/mm3 (150-400); RDW Coefficient Variation 17.6 % (11.7-14.2); RDW Standard Deviation 51.2 fL (35.1-46.3); RETICULOCYTE COUNT PERCENT 0.78 % (0.50-2.50); Red Blood Cell Count 3.63 M/mm3 (3.80-5.20); White Blood Cell Count 11.03 K/mm3 (4.00-11.30)
[2022-11-17 03:46] VITALS: BP 104/54
[2022-11-17 04:10] LABS: Magnesium, Blood 1.9 mg/dL (1.6-2.4); Percent Saturation 6.4 % (15.0-50.0)
[2022-11-17 04:14] LABS: Bun/Creatinine Ratio 6.6 (12.0-20.0); Calcium, Blood 8.1 mg/dL (8.5-10.1); Creatinine, Blood 0.3 mg/dL (0.40-1.00); Potassium, Blood 3.6 mmol/L (3.5-5.5); Thyroid Stimulating Hormone 6.52 uIU/mL (0.360-4.800)
--- NOTE | 2022-11-17 05:26 | NUR ---
CONTACTED MD ABOUT AM LABS SHOWING TSH OF 6.520. MD ORDERED 0600 LEVOTHYROXINE TO BE HELD AND TO UPDATE ONCOMING RN TO CONTACT DAY TIME MD. NESS TO PLACE T3 AND T4 LAB ORDERS.
[2022-11-17 06:03] LABS: Free Thyroxine 0.83 ng/dL (0.70-1.60)
[2022-11-17 06:05] LABS: Triiodothyronine, Free 0.92 pg/mL (2.18-3.98)
--- NOTE | 2022-11-17 06:31 | NUR ---
SHIFT SUMMARY PT ARRIVED TO PCU AT BEGINNING OF SHIFT. PT A/OX4 AND COOPERATIVE OF CARE SINCE ARRIVAL TO UNIT. PT REPORTED CHEST PRESSURE TOWARDS BEGINNING OF SHIFT, MD NOTIFIED AND EKG DONE AND IN CHART. CHEST PRESSURE SUBSIDED ON IT'S OWN. NO REPORT OF SOB, THOUGH PT VISIBLEY LABORED BREATHING. VSS SINCE ARRIVAL TO UNIT WITH 02 SATS IN THE 90'S ON 3L NC. PT RECIEVED BREATHING TREATMENTS DURING, REPORTS "BREATHING EASIER." TSH MORNING LAB CAME BACK HIGH, MD NOTIFIED, SEE PREVIOUS NOTES. STILL WAITING FOR UA, PT INCONTINENT.
[2022-11-17 07:39] VITALS: BP 117/64
--- NOTE | 2022-11-17 10:50 | NUR ---
PT EDUCATED ON NEED TO CONTINUE TO AMBULATE AT BASELINE TO NOT LOSE MOBILITY. PT AGREEABLE TO GET UP TO USE BSC TO URINATE. PT CURRENTLY RESTING IN BED, WITH OUT COMPLAINT OF PAIN OR DISCOMFORT. CALL LIGHT IN REACH, PT CALLS APPROPRIATELY.
[2022-11-17 11:45] VITALS: BP 115/57
[2022-11-17 13:05] LABS: Bun/Creatinine Ratio 9.1 (12.0-20.0); Calcium, Blood 8.2 mg/dL (8.5-10.1); Creatinine, Blood 0.33 mg/dL (0.40-1.00); Potassium, Blood 3.4 mmol/L (3.5-5.5)
--- NOTE | 2022-11-17 13:17 | NUR ---
PT TOLERATED STRAIGHT CATH WELL, URINE SENT TO LAB FOR UA. IV REPLACED PER PT REQUEST DUE TO CONTINUAL OCCLUDING. CALL LIGHT IN REACH, NO FURTHER CONCERNS AT THIS TIME
[2022-11-17 13:26] LABS: Source, Urine Straight Cath
[2022-11-17 13:36] LABS: Appearance, Urine Cloudy (Clear); Bilirubin, Urine Neg (Neg); Blood, Urine 2+ (Neg); Color, Urine Yellow (P-Yellow); Glucose Qualitative, Urine Neg (Neg); Ketones, Urine Neg (Neg); Leukocyte Esterase, Urine 3+ (Neg); Nitrite, Urine Pos (Neg); Protein, Urine 2+ (Neg); Specific Gravity, Urine 1.015 (1.003-1.022); Urobilinogen, Urine 3+ (Normal)
[2022-11-17 13:57] LABS: Bacteria Many /hpf; Mucus Light (0-Heavy); Red Blood Cells, Urine 0-2 /hpf (0-2); Squamous Epithelial Cells Rare /hpf (Few); White Blood Cells, Urine TNTC /hpf (0-5)
--- NOTE | 2022-11-17 17:55 | NUR ---
PT UA CAME BACK, RESULTS REPORTED TO AND ORDERS ADDED. PT NOW ON NS AND IV ANTIBIOTIC. PT TOLERATING FLUIDS WELL WITH NO COMPLAINT. PT IS A/OX4 AND MAKES HER NEEDS KNOWN. SHE IS BEDBOUND AT BASELINE WITH MINIMAL STAND PIVOT TRANSFERS TO WHEELCHAIR. SHE IS INCONT OF BOWEL AND BLADDER AND REQUIRES FREQUENT CHECKS. PT STATES BMS ARE LOOSE AT BASELINE. PT LIVES WITH GRANDSON AND HAS CAREGIVERS DURING THE DAY.
[2022-11-17 21:05] VITALS: BP 103/64
[2022-11-17 23:21] VITALS: BP 123/73
[2022-11-18 03:42] VITALS: BP 102/80
--- NOTE | 2022-11-18 04:49 | NUR ---
SHIFT SUMMARY PT A&Ox4, CALLS AND COMMUNICATES NEEDS APPROPRIATELY. BP STABLE, SINUS w/ PACs, DENIES CP/PRESSURE. SpO2> 92% ON BASELINE 3L VIA NC, DENIES SOB. PT HAD NO C/O PAIN AND RESTED COMFORTABLY THROUGHOUT NIGHT. NS INFUSING @ 125mLs/hr PER EMAR. INCONTINENT OF URINE, PUREWICK IN PLACE. Q2hr TURNS PROVIDED. NO OTHER EVENTS, WILL REPORT TO ONCOMING RN.
[2022-11-18 07:24] VITALS: BP 108/70
[2022-11-18 08:23] LABS: BASOPHILS ABSOLUTE AUTO 0.02 K/mm3 (0.00-0.23); BASOPHILS PERCENT AUTO 0 % (0-2); EOSINOPHILS ABSOLUTE AUTO 0.09 K/mm3 (0.00-0.68); EOSINOPHILS PERCENT AUTO 1 % (0-6); Hematocrit 25.9 % (33.0-51.0); Hemoglobin 8.2 g/dL (11.5-16.0); IMMATURE GRAN ABSOLUTE AUTO 0.03 K/mm3 (0.00-0.10); IMMATURE GRAN PERCENT AUTO 0 % (0-1); LYMPHOCYTES ABSOLUTE AUTO 0.82 K/mm3 (0.84-5.20); LYMPHOCYTES PERCENT AUTO 10 % (21-46); MONOCYTES ABSOLUTE AUTO 0.92 K/mm3 (0.16-1.47); MONOCYTES PERCENT AUTO 11 % (4-13); Mean Corpuscular HGB 25.2 pg (26.0-34.0); Mean Corpuscular HGB Conc 31.7 g/dL (31.5-36.5); Mean Corpuscular Volume 79 fL (80-100); Mean Platelet Volume 10.8 fL (9.1-12.4); NEUTROPHILS ABSOLUTE AUTO 6.47 K/mm3 (1.96-9.15); NEUTROPHILS PERCENT AUTO 78 % (41-73); Platelet Count 289 K/mm3 (150-400); RDW Coefficient Variation 17.7 % (11.7-14.2); RDW Standard Deviation 51.6 fL (35.1-46.3); Red Blood Cell Count 3.26 M/mm3 (3.80-5.20); White Blood Cell Count 8.35 K/mm3 (4.00-11.30)
[2022-11-18 08:41] LABS: Bun/Creatinine Ratio 9.6 (12.0-20.0); Calcium, Blood 7.6 mg/dL (8.5-10.1); Creatinine, Blood 0.31 mg/dL (0.40-1.00); Potassium, Blood 3.6 mmol/L (3.5-5.5)
[2022-11-18 12:00] VITALS: BP 107/53
--- NOTE | 2022-11-18 15:30 | NUR ---
PT REPORT GIVEN TO MEDICAL RN AND TRANSFERED PT TO 309 AT 3:30 BY RN AND FACILITY SERVICE MANAGER.
--- NOTE | 2022-11-18 16:01 | NUR ---
PT ARRIVED IN ROOM AT 1539 IN HOSPITAL BED. PT ORIENTED TO ROOM AND STAFF. NO ACUTE CHANGES AT THIS TIME. VSS. BED LOCKED AND IN LOWEST POSITION. CALL LIGHT WITHIN REACH. FOAM DRESSINGS PLACED BILATERALLY ON HEELS DUE TO REDNESS TO REDUCE RISK OF SKIN BREAKDOWN. HEELS BLANCHABLE.
--- NOTE | 2022-11-18 18:13 | NUR ---
SHIFT SUMMARY NO ACUTE CHANGES DURING MY SHIFT. PT TRANSPORTED TO IMAGING TO RECEIVE CAT SCAN. VSS. PT LEFT IN A POSITION OF SAFETY WITH BED LOCKED AND IN LOWEST POSITION, NONSKID SOCKS IN PLACE, ROOM CLEAR OF DEBRIS, AND CALL LIGHT WITHIN REACH.
[2022-11-18 19:26] VITALS: BP 127/82
[2022-11-19 04:34] VITALS: BP 131/118
--- NOTE | 2022-11-19 04:56 | NUR ---
SHIFT SUMMARY PATIENT A/Ox4, WITHOUT COMPLAINTS OF PAIN NOR DISCOMFORT. VSS, SEE MAR FLOWSHEET FOR TRENDS. PUREWICK IN PLACE FOR URINARY INCONTINENCE. NO ACUTE CHANGES NOTED OVERNIGHT. BED LOCKED AND IN LOWEST POSITION, CALL LIGHT WITHIN REACH.
[2022-11-19 07:14] VITALS: BP 132/59
[2022-11-19 08:26] LABS: BASOPHILS ABSOLUTE AUTO 0.02 K/mm3 (0.00-0.23); BASOPHILS PERCENT AUTO 0 % (0-2); EOSINOPHILS ABSOLUTE AUTO 0.19 K/mm3 (0.00-0.68); EOSINOPHILS PERCENT AUTO 2 % (0-6); Hematocrit 26.1 % (33.0-51.0); Hemoglobin 8.2 g/dL (11.5-16.0); IMMATURE GRAN ABSOLUTE AUTO 0.04 K/mm3 (0.00-0.10); IMMATURE GRAN PERCENT AUTO 1 % (0-1); LYMPHOCYTES ABSOLUTE AUTO 0.73 K/mm3 (0.84-5.20); LYMPHOCYTES PERCENT AUTO 9 % (21-46); MONOCYTES ABSOLUTE AUTO 0.76 K/mm3 (0.16-1.47); MONOCYTES PERCENT AUTO 9 % (4-13); Mean Corpuscular HGB 24.6 pg (26.0-34.0); Mean Corpuscular HGB Conc 31.4 g/dL (31.5-36.5); Mean Corpuscular Volume 78 fL (80-100); Mean Platelet Volume 10.6 fL (9.1-12.4); NEUTROPHILS ABSOLUTE AUTO 6.56 K/mm3 (1.96-9.15); NEUTROPHILS PERCENT AUTO 79 % (41-73); NRBC ABSOLUTE 0.03 K/mm3 (0.00-0.02); NRBC Auto 0.4 /100 WBC (0.0-0.2); Platelet Count 295 K/mm3 (150-400); RDW Coefficient Variation 17.4 % (11.7-14.2); RDW Standard Deviation 49.5 fL (35.1-46.3); Red Blood Cell Count 3.33 M/mm3 (3.80-5.20)
[2022-11-19 08:57] LABS: Bun/Creatinine Ratio 6.2 (12.0-20.0); Calcium, Blood 7.5 mg/dL (8.5-10.1); Creatinine, Blood 0.33 mg/dL (0.40-1.00); Potassium, Blood 3.4 mmol/L (3.5-5.5)
[2022-11-19 15:30] VITALS: BP 119/80
--- NOTE | 2022-11-19 18:45 | NUR ---
SHIFT SUMMARY A&O X 4, VSS. IS PLEASANT & COOPERATIVE WITH ALL NURSING CARE. DID REFUSE OT & PT TODAY STATING "IT'S TOO MUCH". IS ABLE TO ROLL SIDE TO SIDE FOR PERSONAL CARE & LINEN CHANGES. RESTED IN BED THIS SHIFT, REPOSITIONED FREQ FOR COMFORT. PUREWICK IN USE FOR URINATION. APPETITE IS MARGINAL. IS NOW ON A 2 L FLUID RESTRICTION. IV ANTIBIOTICS GIVEN PER EMAR.
[2022-11-19 19:53] VITALS: BP 120/75
[2022-11-20 01:59] VITALS: BP 136/74
--- NOTE | 2022-11-20 03:57 | NUR ---
SHIFT SUMMERY, PT RESTING IN BED PT HAS A CORSE SOUNDING COUGH AT TIMES. BUT NOT ABLE TO GET SPECIMIN. PT SEEMS TO HAVE SLEPT WELL DURING THE NIGHT. CALL LIGHT IN REACH.
[2022-11-20 05:06] LABS: BASOPHILS ABSOLUTE AUTO 0.02 K/mm3 (0.00-0.23); BASOPHILS PERCENT AUTO 0 % (0-2); EOSINOPHILS ABSOLUTE AUTO 0.35 K/mm3 (0.00-0.68); EOSINOPHILS PERCENT AUTO 5 % (0-6); Hematocrit 26.7 % (33.0-51.0); Hemoglobin 8.6 g/dL (11.5-16.0); IMMATURE GRAN ABSOLUTE AUTO 0.04 K/mm3 (0.00-0.10); IMMATURE GRAN PERCENT AUTO 1 % (0-1); LYMPHOCYTES ABSOLUTE AUTO 0.92 K/mm3 (0.84-5.20); LYMPHOCYTES PERCENT AUTO 12 % (21-46); MONOCYTES ABSOLUTE AUTO 0.88 K/mm3 (0.16-1.47); MONOCYTES PERCENT AUTO 12 % (4-13); Mean Corpuscular HGB 25.1 pg (26.0-34.0); Mean Corpuscular HGB Conc 32.2 g/dL (31.5-36.5); Mean Corpuscular Volume 78 fL (80-100); Mean Platelet Volume 10.5 fL (9.1-12.4); NEUTROPHILS ABSOLUTE AUTO 5.19 K/mm3 (1.96-9.15); NEUTROPHILS PERCENT AUTO 70 % (41-73); Platelet Count 359 K/mm3 (150-400); RDW Coefficient Variation 17.3 % (11.7-14.2); RDW Standard Deviation 49.6 fL (35.1-46.3); Red Blood Cell Count 3.43 M/mm3 (3.80-5.20)
[2022-11-20 05:37] LABS: Bun/Creatinine Ratio 9.6 (12.0-20.0); Creatinine, Blood 0.31 mg/dL (0.40-1.00); Potassium, Blood 3.4 mmol/L (3.5-5.5)
[2022-11-20 07:14] VITALS: BP 125/56
--- NOTE | 2022-11-20 10:43 | NUR ---
Pt resting in bed and denies pain, anxiety, and dyspnea at this time. Pt does report mild but managable nausea. Pt reports living at home with her son and grandson who are supportive of her needs. Engaged in therapeutic conversation regarding advanced care planning. Educated on disease process including trajectory. Discussed the importance of planning for the future including the potential of considering hospice. Pt reports being on hospice twice in the past and is familiar with philosophy. Pt does not indicate interest in hospice at this time. Pt expresses appreciation and reports no concerns at this time. Spoke with Primary RN Chanel and discussed case. Palliative Care will remain available
[2022-11-20 15:40] VITALS: BP 117/62
--- NOTE | 2022-11-20 18:42 | NUR ---
SHIFT SUMMARY: PT A/O X 4, PIVOT TRANSFER. PT PLEASANT WITH CARE. PT DECLINED THERAPY SERVICES. PT REMAINS ON 3 LPM VIA NC WHICH IS HER BASELINE. PER PT DYSPNEA IS AT HER BASELINE. PT HAS POOR APPETITE. DENIED PAIN, NAUSEA THROUGHOUT THE DAY.
[2022-11-20 19:41] VITALS: BP 132/88
--- NOTE | 2022-11-21 02:38 | NUR ---
SHIFT SUMMERY, PT RESTING IN BED, PT WILL CALL WHEN SHE HAS NEEDS. PT RESTED ON AND OFF DURING THE NIGHT CALL LIGHT IN REACH.
[2022-11-21 03:38] VITALS: BP 124/82
[2022-11-21 04:56] LABS: BASOPHILS ABSOLUTE AUTO 0.03 K/mm3 (0.00-0.23); BASOPHILS PERCENT AUTO 0 % (0-2); EOSINOPHILS PERCENT AUTO 8 % (0-6); Hemoglobin 8.2 g/dL (11.5-16.0); IMMATURE GRAN ABSOLUTE AUTO 0.03 K/mm3 (0.00-0.10); IMMATURE GRAN PERCENT AUTO 0 % (0-1); LYMPHOCYTES ABSOLUTE AUTO 1.18 K/mm3 (0.84-5.20); LYMPHOCYTES PERCENT AUTO 16 % (21-46); MONOCYTES ABSOLUTE AUTO 1.12 K/mm3 (0.16-1.47); MONOCYTES PERCENT AUTO 15 % (4-13); Mean Corpuscular HGB Conc 31.5 g/dL (31.5-36.5); Mean Corpuscular Volume 79 fL (80-100); Mean Platelet Volume 10.4 fL (9.1-12.4); NEUTROPHILS ABSOLUTE AUTO 4.65 K/mm3 (1.96-9.15); NEUTROPHILS PERCENT AUTO 61 % (41-73); Platelet Count 399 K/mm3 (150-400); RDW Coefficient Variation 17.5 % (11.7-14.2); RDW Standard Deviation 50.7 fL (35.1-46.3); Red Blood Cell Count 3.28 M/mm3 (3.80-5.20); White Blood Cell Count 7.61 K/mm3 (4.00-11.30)
[2022-11-21 05:29] LABS: Bun/Creatinine Ratio 14.9 (12.0-20.0); Calcium, Blood 7.6 mg/dL (8.5-10.1); Creatinine, Blood 0.4 mg/dL (0.40-1.00); Potassium, Blood 3.7 mmol/L (3.5-5.5)
[2022-11-21 07:24] VITALS: BP 127/76
[2022-11-21 15:58] VITALS: BP 125/72
--- NOTE | 2022-11-21 18:41 | NUR ---
SHIFT SUMMARY: JERROD IS A&OX4. VSS, NO ACUTE EVENTS THIS SHIFT. PUREWICK AND ATTENDS IN PLACE FOR INCONTINENCE. SHE HAS DENIED PAIN THIS SHIFT AND REPORTS MINIMAL SPUTUM, COARSE COUGH. SHE IS MAINTAINING SATS WITH 3 L VIA NC. HEEL PROTECTORS IN PLACE. PT REPORTS POOR APPETITE THIS EVENING. SHE IS LYING IN BED WITH THE CALL LIGHT IN REACH. WCTM UNTIL REPORT IS GIVEN TO OVEN TECHNICIAN RN.
[2022-11-21 19:17] VITALS: BP 135/107
[2022-11-21 19:44] VITALS: BP 134/61
--- NOTE | 2022-11-22 02:35 | NUR ---
SHIFT SUMMERY, PT RSTING IN BED, PT GOT A NEW IV TO HER R WRIST. OTHER IV WAS LEAKING. PT ALERT AND VERY COOPERATIVE. PT TOOK HER HS MEDS AND HAS SEEMED TO BE SLEEPING WELL THIS NIGHT. CALL LIGHT IN REACH.
[2022-11-22 04:10] VITALS: BP 137/71
[2022-11-22 07:30] VITALS: BP 121/61
[2022-11-22 08:35] LABS: BASOPHILS ABSOLUTE AUTO 0.04 K/mm3 (0.00-0.23); BASOPHILS PERCENT AUTO 1 % (0-2); EOSINOPHILS PERCENT AUTO 6 % (0-6); Hematocrit 28.4 % (33.0-51.0); Hemoglobin 8.8 g/dL (11.5-16.0); IMMATURE GRAN ABSOLUTE AUTO 0.04 K/mm3 (0.00-0.10); IMMATURE GRAN PERCENT AUTO 1 % (0-1); LYMPHOCYTES ABSOLUTE AUTO 1.21 K/mm3 (0.84-5.20); LYMPHOCYTES PERCENT AUTO 19 % (21-46); MONOCYTES ABSOLUTE AUTO 0.84 K/mm3 (0.16-1.47); MONOCYTES PERCENT AUTO 13 % (4-13); Mean Corpuscular HGB 24.6 pg (26.0-34.0); Mean Corpuscular Volume 80 fL (80-100); Mean Platelet Volume 10.2 fL (9.1-12.4); NEUTROPHILS ABSOLUTE AUTO 3.76 K/mm3 (1.96-9.15); NEUTROPHILS PERCENT AUTO 60 % (41-73); Platelet Count 430 K/mm3 (150-400); RDW Coefficient Variation 17.9 % (11.7-14.2); RDW Standard Deviation 52.7 fL (35.1-46.3); Red Blood Cell Count 3.57 M/mm3 (3.80-5.20); White Blood Cell Count 6.29 K/mm3 (4.00-11.30)
[2022-11-22 09:08] LABS: Calcium, Blood 8.1 mg/dL (8.5-10.1); Creatinine, Blood 0.43 mg/dL (0.40-1.00); Potassium, Blood 3.8 mmol/L (3.5-5.5)
[2022-11-22 15:52] VITALS: BP 116/52
[2022-11-22 19:34] VITALS: BP 142/67
[2022-11-23 04:42] VITALS: BP 123/70
--- NOTE | 2022-11-23 05:09 | NUR ---
EOS: PATIENT HAS BEEN COOPERATIVE WITH CARE ALERT AND ORIENTED, VSS, INFUSING UNASYN PER MAR. PATIENT RELUCTANT FOR REPOSITIONS, TALKER HER INTO Q4 PUREWICK IN PLACE NO BM. ATTENDS CHANGED, TKO WHEN IV NOT IN USE. DENIES CHEST PAIN PRESSURE OR SOB. OCC COUGH NO SECRETIONS EXPRESSED THIS SHIFT AT THIS TIME. NO ISSUES WEARING HER 3L VIA NC WHICH IS BASELINE
[2022-11-23 07:27] VITALS: BP 132/73
--- NOTE | 2022-11-23 09:00 | NUR ---
pt laying in bed eating breakfast, a/ox4, pleasant and cooperative with care, follows commands well, denies pain, states her night was good, lungs are clear dim in bases, currently on 3li 02 via n/c, resp even and unlabored, no cough noted, hrr, tele in place running sr per monitor, see strip, no edema noted, ppp+1 cap refill <3sec, vs stable, afebrile, piv to rfa, site is clear and patent, btx4, abd flat soft nontender, voids via purwick at this time with briefs in place, skin is pink on bottom and heels, protective dressings in place, maew, weak, ana maria, call light in reach.
[2022-11-23 15:31] VITALS: BP 130/67
--- NOTE | 2022-11-23 18:31 | NUR ---
pt has been turned and changed durring this shift, no acute changes, call light in reach.
[2022-11-23 20:34] VITALS: BP 139/84
[2022-11-24 03:58] VITALS: BP 127/62
[2022-11-24 05:07] LABS: BASOPHILS ABSOLUTE AUTO 0.08 K/mm3 (0.00-0.23); BASOPHILS PERCENT AUTO 1 % (0-2); EOSINOPHILS ABSOLUTE AUTO 0.63 K/mm3 (0.00-0.68); EOSINOPHILS PERCENT AUTO 6 % (0-6); Hematocrit 27.2 % (33.0-51.0); Hemoglobin 8.4 g/dL (11.5-16.0); IMMATURE GRAN ABSOLUTE AUTO 0.06 K/mm3 (0.00-0.10); IMMATURE GRAN PERCENT AUTO 1 % (0-1); LYMPHOCYTES ABSOLUTE AUTO 1.86 K/mm3 (0.84-5.20); LYMPHOCYTES PERCENT AUTO 18 % (21-46); MONOCYTES ABSOLUTE AUTO 1.06 K/mm3 (0.16-1.47); MONOCYTES PERCENT AUTO 10 % (4-13); Mean Corpuscular HGB 25.1 pg (26.0-34.0); Mean Corpuscular HGB Conc 30.9 g/dL (31.5-36.5); Mean Corpuscular Volume 81 fL (80-100); Mean Platelet Volume 10.3 fL (9.1-12.4); NEUTROPHILS ABSOLUTE AUTO 6.49 K/mm3 (1.96-9.15); NEUTROPHILS PERCENT AUTO 64 % (41-73); Platelet Count 416 K/mm3 (150-400); RDW Standard Deviation 53.4 fL (35.1-46.3); Red Blood Cell Count 3.35 M/mm3 (3.80-5.20); White Blood Cell Count 10.18 K/mm3 (4.00-11.30)
[2022-11-24 05:22] LABS: Calcium, Blood 8.3 mg/dL (8.5-10.1); Creatinine, Blood 0.42 mg/dL (0.40-1.00); Potassium, Blood 4.7 mmol/L (3.5-5.5)
--- NOTE | 2022-11-24 06:30 | NUR ---
Rn summary: Patient is alert and oriented to all. Patient was nausiated at the beginning of the shift and she received zofran 4 mg with good relief. Patient has rested well tonight. Patient continues with Q 6 IV antibiotics. Patient has had no c/o pain. Pt is using a purwik for urination and a brief. Lungs are tight and diminished with fine wheezes. Tele shows SR rate 80's. Call light in reach, cofee and snack given this am.
[2022-11-24 07:24] VITALS: BP 116/59
[2022-11-24] MEDS ORDERED: GUAI600T33 PO (13:18)
[2022-11-24] MEDS ORDERED: AMOCLA875 PO (13:18)
[2022-11-24] MEDS ORDERED: SODCHL1 PO (13:18)
[2022-11-24] MEDS ORDERED: METO25 PO (13:18)
[2022-11-24 15:25] VITALS: BP 134/65
--- NOTE | 2022-11-24 17:28 | NUR ---
PT DISCHARGED FROM THE UNIT. IV REMOVED. DISCHARGE INSTRUCTION REVIEWED. MEDICATIONS FAXED TO PHARMACY. PT LEFT UNIT VIA TRANSPORT.
== END 2022-11-24 16:51 | disposition home health service (06) | DRG 643 ==
LOC: ER 15:14 → PCU 18:43 → MEDS 11-18 15:52
PROVIDERS: Emergency Medicine; Internal Medicine; ADMIT Family Medicine
DX: E22.2 Syndrome of inappropriate secretion of antidiuretic hormone (principal); J18.9 Pneumonia, unspecified organism; J96.11 Chronic respiratory failure with hypoxia; N39.0 Urinary tract infection, site not specified; J91.8 Pleural effusion in other conditions classified elsewhere; Z66 Do not resuscitate; E78.5 Hyperlipidemia, unspecified; E03.9 Hypothyroidism, unspecified; I73.9 Peripheral vascular disease, unspecified; I48.91 Unspecified atrial fibrillation; F17.210 Nicotine dependence, cigarettes, uncomplicated; R91.1 Solitary pulmonary nodule; R54 Age-related physical debility; J43.9 Emphysema, unspecified; F32.A Depression, unspecified; F41.9 Anxiety disorder, unspecified; Z20.822 Contact with and (suspected) exposure to COVID-19; B96.1 Klebsiella pneumoniae [K. pneumoniae] as the cause of diseases classified elsewhere; Z88.2 Allergy status to sulfonamides; Z88.8 Allergy status to other drugs, medicaments and biological substances; Z86.711 Personal history of pulmonary embolism; Z79.899 Other long term (current) drug therapy; Z79.890 Hormone replacement therapy; Z79.51 Long term (current) use of inhaled steroids; Z90.89 Acquired absence of other organs
CPT/HCPCS: 0241U; 36415; 36416; 51701; 71046; 71250; 80048; 80053; 80400; 81001; 82533; 82728; 83540; 83550; 83605; 83735; 83880; 83930; 83935; 84100; 84145; 84295; 84300; 84439; 84443; 84481; 84484; 85025; 85027; 85045; 87040; 87070; 87077; 87086; 87186; 87205; 87449; 92526; 92610; 93005; 93010; 93306; 94640; 94664; 94760; 94762; 96360; 96361; 97110; 97110-CQ; 97162; 97165; 97530; 99285-25; A9270; J0295; J0456; J0696; J0834; J2405; J7030; J7050

== ENCOUNTER 2022-11-26 10:23 | Inpatient (IN) | payer OTHER ==
[~2022-11-26] VITALS: Ht 165.1 cm; Wt 52.2 kg
[~2022-11-26 10:23] MED LIST changes: +AMOCLA875 PO; +CELEXA10 MG PO; +METO25 PO; +SODCHL1 PO; +XARELTO20 M1 PO
[2022-11-26 10:53] LABS: BASOPHILS ABSOLUTE AUTO 0.06 K/mm3 (0.00-0.23); BASOPHILS PERCENT AUTO 1 % (0-2); EOSINOPHILS ABSOLUTE AUTO 0.09 K/mm3 (0.00-0.68); EOSINOPHILS PERCENT AUTO 1 % (0-6); IMMATURE GRAN ABSOLUTE AUTO 0.07 K/mm3 (0.00-0.10); IMMATURE GRAN PERCENT AUTO 1 % (0-1); LYMPHOCYTES ABSOLUTE AUTO 1.15 K/mm3 (0.84-5.20); LYMPHOCYTES PERCENT AUTO 11 % (21-46); MONOCYTES ABSOLUTE AUTO 0.72 K/mm3 (0.16-1.47); MONOCYTES PERCENT AUTO 7 % (4-13); Mean Corpuscular HGB 25.3 pg (26.0-34.0); Mean Corpuscular HGB Conc 32.3 g/dL (31.5-36.5); Mean Corpuscular Volume 78 fL (80-100); Mean Platelet Volume 10.4 fL (9.1-12.4); NEUTROPHILS PERCENT AUTO 80 % (41-73); Platelet Count 463 K/mm3 (150-400); RDW Coefficient Variation 16.5 % (11.7-14.2); RDW Standard Deviation 46.6 fL (35.1-46.3); Red Blood Cell Count 3.96 M/mm3 (3.80-5.20); White Blood Cell Count 10.39 K/mm3 (4.00-11.30)
[2022-11-26 11:12] LABS: Bun/Creatinine Ratio 20.2 (12.0-20.0); Calcium, Blood 8.2 mg/dL (8.5-10.1); Creatinine, Blood 0.35 mg/dL (0.40-1.00); Potassium, Blood 4.6 mmol/L (3.5-5.5)
[2022-11-26 14:55] LABS: Source, Urine Straight Cath
[2022-11-26 15:05] LABS: Appearance, Urine Clear (Clear); Bilirubin, Urine Neg (Neg); Blood, Urine Neg (Neg); Glucose Qualitative, Urine Neg (Neg); Ketones, Urine 2+ (Neg); Leukocyte Esterase, Urine Neg (Neg); Nitrite, Urine Neg (Neg); Protein, Urine Neg (Neg); Specific Gravity, Urine 1.015 (1.003-1.022); Urobilinogen, Urine NORM (Normal)
[2022-11-26 16:02] VITALS: BP 133/66
[2022-11-26 16:11] LABS: Color, Urine Pale Yellow (P-Yellow)
--- NOTE | 2022-11-26 17:51 | NUR ---
SHIFT SUMMARY PT AXO, PLEASANT AND COOPERATIVE WITH CARE. ADMITTED THIS SHIFT. VSS. IV PATENT AND INFUSING PER EMAR. PT ORIENTED TO ROOM. MEPILEX APPLIED TO COCCYX FOR PREVENTION, BLUE TOP LOTION APPLIED TO BLE AND HEEL PROTECTORS IN PLACE. BED IN LOW POSITON, CALL LIGHT WITHIN REACH.
[2022-11-26 19:18] LABS: Bun/Creatinine Ratio 17.2 (12.0-20.0); Calcium, Blood 7.9 mg/dL (8.5-10.1); Creatinine, Blood 0.41 mg/dL (0.40-1.00); Potassium, Blood 3.8 mmol/L (3.5-5.5)
[2022-11-26 20:06] VITALS: BP 127/65
[2022-11-27 05:29] LABS: BASOPHILS ABSOLUTE AUTO 0.03 K/mm3 (0.00-0.23); BASOPHILS PERCENT AUTO 0 % (0-2); EOSINOPHILS PERCENT AUTO 1 % (0-6); Hematocrit 25.4 % (33.0-51.0); Hemoglobin 8.3 g/dL (11.5-16.0); IMMATURE GRAN ABSOLUTE AUTO 0.03 K/mm3 (0.00-0.10); IMMATURE GRAN PERCENT AUTO 0 % (0-1); LYMPHOCYTES ABSOLUTE AUTO 1.12 K/mm3 (0.84-5.20); LYMPHOCYTES PERCENT AUTO 16 % (21-46); MONOCYTES ABSOLUTE AUTO 0.77 K/mm3 (0.16-1.47); MONOCYTES PERCENT AUTO 11 % (4-13); Mean Corpuscular HGB 25.2 pg (26.0-34.0); Mean Corpuscular HGB Conc 32.7 g/dL (31.5-36.5); Mean Corpuscular Volume 77 fL (80-100); Mean Platelet Volume 11.1 fL (9.1-12.4); NEUTROPHILS ABSOLUTE AUTO 4.89 K/mm3 (1.96-9.15); NEUTROPHILS PERCENT AUTO 71 % (41-73); Platelet Count 382 K/mm3 (150-400); RDW Coefficient Variation 16.5 % (11.7-14.2); RDW Standard Deviation 46.7 fL (35.1-46.3); White Blood Cell Count 6.94 K/mm3 (4.00-11.30)
[2022-11-27 05:46] VITALS: BP 116/52
[2022-11-27 06:08] LABS: Albumin, Blood 2.4 g/dL (3.4-5.0); Albumin/Globulin Ratio 0.6 (0.8-1.8); Bilirubin, Total 0.5 mg/dL (0.1-1.0); Calcium, Blood 7.8 mg/dL (8.5-10.1); Creatinine, Blood 0.36 mg/dL (0.40-1.00); Total Protein, Blood 6.4 g/dL (6.4-8.2)
--- NOTE | 2022-11-27 06:17 | NUR ---
NOC SHIFT SUMMARY: SODIUM 117 THIS AM. NO C/O PAIN. PATIENT REFUSES TO BE REPOSITIONED IN BED. SHE STATES SHE IS NOT ABLE TO LAY ON EITHER SIDE. THORACENTESIS TO BE DONE TODAY. COCCYX RED. MEPIPLEX IN PLACE. HEEL PROTECTORS IN PLACE.
[2022-11-27 07:47] VITALS: BP 121/62
[2022-11-27 11:07] VITALS: BP 123/66
[2022-11-27 11:12] LABS: Automated BF RBC Count 0.002 M/mm3 (0-0); Automated BF WBC Count 2.528 K/mm3 (0-999)
[2022-11-27 11:13] LABS: Body Fluid WBC Count 2528 /mm3 (0-999); RBC Count, Body Fluid 2000 /mm3 (0-0)
[2022-11-27 11:30] LABS: Lactate Dehydrogenase, Body Fl 136 U/L
[2022-11-27 11:36] LABS: Protein, Body Fluid 4.1 g/dL
[2022-11-27 12:23] LABS: Total Cell Count, Body Fluid 100
[2022-11-27 12:50] LABS: Appearance, Body Fluid Hazy (Clear); Color, Body Fluid Yellow (None-Yellow)
[2022-11-27 14:07] LABS: Bun/Creatinine Ratio 27.9 (12.0-20.0); Calcium, Blood 7.8 mg/dL (8.5-10.1); Creatinine, Blood 0.32 mg/dL (0.40-1.00); Potassium, Blood 4.1 mmol/L (3.5-5.5)
--- NOTE | 2022-11-27 16:27 | NUR ---
Spoke with Dr Haines and discussed case. Pt may benefit from discussion regarding goals of care. Pt is known to this technical writer from previous hospital stay. Pt is resting in bed, appears weak and frail. Picked up conversation from last visit and educated on disease process including trajectory. Discussed considering hospice. Listened as Pt reports being on hospice twice in the past. Pt reports being taken off hospice once when she moved to [place] and the last time due to her wanting to come back to the hospital. Gentle discussion regarding quality of life and frequent hospital admissions. Initial response from Pt was no to hospice but then states she is willing to think about it. Pt agreeable for this RN to F/U to discuss further at a later time. Spoke with Primary RN Roxanna and discussed case. Palliative Care will remain available
[2022-11-27 17:02] VITALS: BP 130/66
--- NOTE | 2022-11-27 18:29 | NUR ---
SHIFT SUMMARY PT AXO, PLEASANT. PT REFUSES TO WORK WITH PHYSICAL THERAPY OR TO REPOSITION DURING THE SHIFT. VSS. SODIUM STILL 117 THIS SHIFT, DR RIVERO AWARE, NEW ORDERS PLACED. THORACENTESIS COMPLETED THIS SHIFT, SEE NOTE AND LAB. BED IN LOW POSITION, CALL LIGHT WITHIN REACH. FREE WATER RESTRICTION OF 1500 ML. PT HAD ONLY ABOUT 200ML FREE WATER THIS SHIFT. GATORADE ENCOURAGED. NO ACUTE CHANGES THIS SHIFT. PT DENIES PAIN.
[2022-11-27 19:57] VITALS: BP 120/67
[2022-11-28 02:27] VITALS: BP 130/66
--- NOTE | 2022-11-28 06:04 | NUR ---
NOC SHIFT SUMMARY: PT. CONTINUES ON AUGMENTIN FOR PNA. THORACENTESIS YESTERDAY 5 CC REMOVED. PT. RECEIVED NS X 1 BAG YESTERDAY FOR SODIUM OF 117. A&O X4. WHEELCHAIR BOUND AT BASELINE. INCONTINENT. 3L NC BASELINE. ?DISPOSITION.
[2022-11-28 07:08] VITALS: BP 135/65
[2022-11-28 07:27] LABS: BASOPHILS ABSOLUTE AUTO 0.05 K/mm3 (0.00-0.23); BASOPHILS PERCENT AUTO 1 % (0-2); EOSINOPHILS ABSOLUTE AUTO 0.18 K/mm3 (0.00-0.68); EOSINOPHILS PERCENT AUTO 3 % (0-6); Hematocrit 25.6 % (33.0-51.0); Hemoglobin 8.4 g/dL (11.5-16.0); IMMATURE GRAN ABSOLUTE AUTO 0.04 K/mm3 (0.00-0.10); IMMATURE GRAN PERCENT AUTO 1 % (0-1); LYMPHOCYTES ABSOLUTE AUTO 1.34 K/mm3 (0.84-5.20); LYMPHOCYTES PERCENT AUTO 20 % (21-46); MONOCYTES ABSOLUTE AUTO 0.83 K/mm3 (0.16-1.47); MONOCYTES PERCENT AUTO 12 % (4-13); Mean Corpuscular HGB 25.4 pg (26.0-34.0); Mean Corpuscular HGB Conc 32.8 g/dL (31.5-36.5); Mean Corpuscular Volume 77 fL (80-100); NEUTROPHILS ABSOLUTE AUTO 4.29 K/mm3 (1.96-9.15); NEUTROPHILS PERCENT AUTO 64 % (41-73); Platelet Count 413 K/mm3 (150-400); RDW Coefficient Variation 16.5 % (11.7-14.2); RDW Standard Deviation 46.5 fL (35.1-46.3); Red Blood Cell Count 3.31 M/mm3 (3.80-5.20); White Blood Cell Count 6.73 K/mm3 (4.00-11.30)
[2022-11-28 08:08] LABS: Albumin, Blood 2.4 g/dL (3.4-5.0); Albumin/Globulin Ratio 0.6 (0.8-1.8); Calcium, Blood 7.6 mg/dL (8.5-10.1); Creatinine, Blood 0.31 mg/dL (0.40-1.00); Total Protein, Blood 6.4 g/dL (6.4-8.2)
[2022-11-28 08:11] LABS: Bilirubin, Total 0.4 mg/dL (0.1-1.0); Potassium, Blood 3.7 mmol/L (3.5-5.5)
--- NOTE | 2022-11-28 08:23 | NUR ---
MESSAGE LEFT VM LEFT FOR DR GUERRERO TO LOOK AT CRITICAL LAB VALUE FOR PT.
--- NOTE | 2022-11-28 11:39 | NUR ---
TRANSFER TO ICU SODIUM LEVEL 117. S/B DR GUERRERO AND PT TRANSFERED TO ICU FOR LOW SODIUM AT 1130. REPORT GIVEN TO MURTAZA FLYNN. PT ORIENTATED AND APPROPRIATE THIS MORNING EXCEPT SHE SAID SHE THOUGHT IT IS DECEMBER INSTEAD OF NOVEMBER 2017.
[2022-11-28 11:50] VITALS: BP 126/94
--- NOTE | 2022-11-28 12:25 | NUR ---
ASSUMED CARE PT TRANSFERED FROM 308 TO ICU 5 AT 1140. PT IS AWAKE, ALERT, AND ORIENTED UPON ARRIVAL. PT TRANSFERED VIA BED. PT ANSWERS QUESTIONS APPROPRIATELY. PT DENIES, PAIN OR DISCOMFORT. PT REPORTS SOB THAT IS UNCHANGED FROM BASELINE. PT REQUESTS TO BE SAT UP IN BED. SPO2 >94% ON 3L O2 NC. VITAL SIGNS STABLE. IV SALINE LOCKED. PT WITH ATTENDS IN PLACE, PT REPORTS INCONTINENCE AT BASELINE. STRAIGHT CATH DONE AT THIS TIME FOR LAB COLLECTION. 700 ML CLEAR YELLOW URINE OUTPUT NOTED. PT WITH MEPILEX IN PLACE TO COCCYX. NO REDDNESS NOTED TO COCCYX. WILL CONTINUE TO MONITOR.
[2022-11-28 16:50] LABS: Bun/Creatinine Ratio 85.6 (12.0-20.0); Calcium, Blood 7.9 mg/dL (8.5-10.1); Creatinine, Blood 0.26 mg/dL (0.40-1.00); Potassium, Blood 3.6 mmol/L (3.5-5.5)
[2022-11-28 16:56] VITALS: BP 139/80
[2022-11-28 20:30] VITALS: BP 133/70
[2022-11-28 22:33] LABS: Bun/Creatinine Ratio 57.6 (12.0-20.0); Creatinine, Blood 0.38 mg/dL (0.40-1.00); Potassium, Blood 3.8 mmol/L (3.5-5.5)
[2022-11-29 02:20] VITALS: BP 135/61
[2022-11-29 02:37] LABS: Bun/Creatinine Ratio 46.5 (12.0-20.0); Calcium, Blood 8.1 mg/dL (8.5-10.1); Creatinine, Blood 0.34 mg/dL (0.40-1.00)
--- NOTE | 2022-11-29 04:25 | NUR ---
SHIFT SUMMARY NOC PT A/O X 3-4. PLEASANT AND COOPERATIVE WITH CARE. NO ACUTE CHANGES TO REPORT. PT AGREED TO HAVE PUREWICK PLACED TO HELP WITH INCONTINENCE AND HAS TOLERATED IT WELL. PT ON 3L/NC MAINTAINING SPO2 > 94%. PT HAS MEPELIX IN PLACE ON COCCYX C/D/I. BLE HEEL PROTECTORS IN PLACE. PT IS CURRENTLY RESTING WITH BED IN LOWEST POSITION, AND CALL LIGHT WITHIN REACH.
[2022-11-29 04:36] LABS: BASOPHILS ABSOLUTE AUTO 0.04 K/mm3 (0.00-0.23); BASOPHILS PERCENT AUTO 1 % (0-2); EOSINOPHILS ABSOLUTE AUTO 0.19 K/mm3 (0.00-0.68); EOSINOPHILS PERCENT AUTO 3 % (0-6); Hematocrit 27.1 % (33.0-51.0); Hemoglobin 8.9 g/dL (11.5-16.0); IMMATURE GRAN ABSOLUTE AUTO 0.04 K/mm3 (0.00-0.10); IMMATURE GRAN PERCENT AUTO 1 % (0-1); LYMPHOCYTES ABSOLUTE AUTO 1.28 K/mm3 (0.84-5.20); LYMPHOCYTES PERCENT AUTO 22 % (21-46); MONOCYTES ABSOLUTE AUTO 0.87 K/mm3 (0.16-1.47); MONOCYTES PERCENT AUTO 15 % (4-13); Mean Corpuscular HGB 25.3 pg (26.0-34.0); Mean Corpuscular HGB Conc 32.8 g/dL (31.5-36.5); Mean Corpuscular Volume 77 fL (80-100); Mean Platelet Volume 10.2 fL (9.1-12.4); NEUTROPHILS ABSOLUTE AUTO 3.35 K/mm3 (1.96-9.15); NEUTROPHILS PERCENT AUTO 58 % (41-73); Platelet Count 383 K/mm3 (150-400); RDW Coefficient Variation 16.1 % (11.7-14.2); RDW Standard Deviation 45.1 fL (35.1-46.3); Red Blood Cell Count 3.52 M/mm3 (3.80-5.20); White Blood Cell Count 5.77 K/mm3 (4.00-11.30)
[2022-11-29 05:08] LABS: Percent Saturation 4.2 % (15.0-50.0)
[2022-11-29 05:38] LABS: Albumin, Blood 2.6 g/dL (3.4-5.0); Albumin/Globulin Ratio 0.6 (0.8-1.8); Bilirubin, Total 0.4 mg/dL (0.1-1.0); Bun/Creatinine Ratio 41.8 (12.0-20.0); Creatinine, Blood 0.34 mg/dL (0.40-1.00); Potassium, Blood 3.6 mmol/L (3.5-5.5); Total Protein, Blood 6.6 g/dL (6.4-8.2)
[2022-11-29 07:20] VITALS: BP 101/50
[2022-11-29 10:46] LABS: Bun/Creatinine Ratio 55.9 (12.0-20.0); Calcium, Blood 8.1 mg/dL (8.5-10.1); Creatinine, Blood 0.34 mg/dL (0.40-1.00); Potassium, Blood 3.7 mmol/L (3.5-5.5)
--- NOTE | 2022-11-29 15:01 | NUR ---
Brief visit this afternoon. Pt resting in bed with her eyes closed. Pt briefly opens her eyes to verbal stimuli. She denies pain at this time. Pt does not engaged in conversation much. She confirms remebering our conversation from the other day and states not being interest in hospice. She states "I don't care for how they do things when I get sick". Pt remains with her eyes closed and does not participate in conversation further. Palliative Care will remain available
[2022-11-29 15:23] VITALS: BP 113/59
[2022-11-29 15:40] LABS: Bun/Creatinine Ratio 47.8 (12.0-20.0); Calcium, Blood 8.4 mg/dL (8.5-10.1); Creatinine, Blood 0.42 mg/dL (0.40-1.00); Potassium, Blood 3.8 mmol/L (3.5-5.5)
--- NOTE | 2022-11-29 17:40 | NUR ---
SHIFT SUMMARY: Pt remains A&Ox3 this shift. Slept most of today, verbally aroused. Declines meals. Resp even nonlabored on 3L NC. Cont O2 sat remains 96-97%. Purewick in place. Complete hygiene provdided today with MAINTENANCE INSTRUCTOR. Skin intact. Repositioned Q2 hours. No needs id or verbalized at this time. Will continue to monitor.
[2022-11-29 20:57] VITALS: BP 118/57
[2022-11-29 21:30] LABS: Bun/Creatinine Ratio 41.5 (12.0-20.0); Calcium, Blood 8.5 mg/dL (8.5-10.1); Creatinine, Blood 0.43 mg/dL (0.40-1.00)
[2022-11-30 03:27] LABS: Hematocrit 29.4 % (33.0-51.0); Hemoglobin 9.9 g/dL (11.5-16.0); Mean Corpuscular HGB 25.5 pg (26.0-34.0); Mean Corpuscular HGB Conc 33.7 g/dL (31.5-36.5); Mean Corpuscular Volume 76 fL (80-100); RDW Standard Deviation 44.1 fL (35.1-46.3); Red Blood Cell Count 3.88 M/mm3 (3.80-5.20)
[2022-11-30 03:33] LABS: BASOPHILS ABSOLUTE AUTO 0.05 K/mm3 (0.00-0.23); BASOPHILS PERCENT AUTO 1 % (0-2); EOSINOPHILS ABSOLUTE AUTO 0.13 K/mm3 (0.00-0.68); EOSINOPHILS PERCENT AUTO 2 % (0-6); IMMATURE GRAN ABSOLUTE AUTO 0.04 K/mm3 (0.00-0.10); IMMATURE GRAN PERCENT AUTO 1 % (0-1); LYMPHOCYTES PERCENT AUTO 16 % (21-46); MONOCYTES ABSOLUTE AUTO 1.28 K/mm3 (0.16-1.47); MONOCYTES PERCENT AUTO 16 % (4-13); NEUTROPHILS ABSOLUTE AUTO 5.13 K/mm3 (1.96-9.15); NEUTROPHILS PERCENT AUTO 65 % (41-73); White Blood Cell Count 7.93 K/mm3 (4.00-11.30)
[2022-11-30 03:44] LABS: Albumin, Blood 2.6 g/dL (3.4-5.0); Albumin/Globulin Ratio 0.6 (0.8-1.8); Bilirubin, Total 0.3 mg/dL (0.1-1.0); Bun/Creatinine Ratio 63.5 (12.0-20.0); Calcium, Blood 8.2 mg/dL (8.5-10.1); Creatinine, Blood 0.39 mg/dL (0.40-1.00); Potassium, Blood 3.8 mmol/L (3.5-5.5); Total Protein, Blood 6.6 g/dL (6.4-8.2)
[2022-11-30 03:53] LABS: Mean Platelet Volume 10.3 fL (9.1-12.4); Platelet Count 205 K/mm3 (150-400)
[2022-11-30 04:02] VITALS: BP 100/61
--- NOTE | 2022-11-30 04:49 | NUR ---
SHIFT SUMMARY NOC PT A/O X 4. PLEASANT AND COOPERATIVE WITH CARE. PT 0300 SODIUM 121 AND NO LONGER CRITICAL AND TRENDING IN DESIRED DIRECTION. PT ON 3L/NC WHICH IS BASELINE. PUREWICK IN PLACE. PT SLEPT FOR ENTIRETY OF SHIFT. PT IS CURRENTLY RESTING WITH BED IN LOWEST POSITION, AND CALL LIGHT WITHIN REACH.
[2022-11-30 07:07] VITALS: BP 97/59
[2022-11-30 09:26] VITALS: BP 89/60
[2022-11-30 09:34] LABS: Bun/Creatinine Ratio 48.3 (12.0-20.0); Calcium, Blood 8.5 mg/dL (8.5-10.1); Creatinine, Blood 0.39 mg/dL (0.40-1.00); Potassium, Blood 3.6 mmol/L (3.5-5.5)
[2022-11-30 14:52] VITALS: BP 93/55
[2022-11-30 15:12] LABS: Bun/Creatinine Ratio 73.7 (12.0-20.0); Calcium, Blood 8.9 mg/dL (8.5-10.1); Creatinine, Blood 0.53 mg/dL (0.40-1.00); Potassium, Blood 4.3 mmol/L (3.5-5.5)
--- NOTE | 2022-11-30 18:20 | NUR ---
SHIFT SUMMARY: Pt remains A&Ox3 this shift. More awake, stating she feels better today. VSS. Na 120. Repositioned for comfort Q [address] with yellow output. Resp even nonlabored on 3L nc. Cont pulse ox in place. No further needs id or verbalized at this time.
[2022-11-30 19:07] VITALS: BP 102/57
[2022-11-30 21:24] LABS: Bun/Creatinine Ratio 57.1 (12.0-20.0); Calcium, Blood 8.9 mg/dL (8.5-10.1); Creatinine, Blood 0.54 mg/dL (0.40-1.00); Potassium, Blood 4.2 mmol/L (3.5-5.5)
[2022-12-01 05:01] VITALS: BP 96/58
--- NOTE | 2022-12-01 05:33 | NUR ---
SHIFT SUMMARY NOC PT A/OX 4. PLEASANT AND COOPERATIVE WITH CARE. NO ACUTE CHANGES TO REPORT. PT LAST SODIUM 124. PT SLEPT ENTIRETY OF SHIFT. PT HAS PUREWICK IN PLACE. ON 3L/NC WHICH IS BASELINE ON CONTINOUS BIOX MAINTAINING SPO2 > 94%. PT IS CURRENTLY RESTING WITH BED IN LOWEST POSITION, AND CALL LIGHT WITHIN REACH.
[2022-12-01 06:18] LABS: BASOPHILS ABSOLUTE AUTO 0.06 K/mm3 (0.00-0.23); BASOPHILS PERCENT AUTO 1 % (0-2); EOSINOPHILS ABSOLUTE AUTO 0.26 K/mm3 (0.00-0.68); EOSINOPHILS PERCENT AUTO 4 % (0-6); Hemoglobin 9.3 g/dL (11.5-16.0); IMMATURE GRAN ABSOLUTE AUTO 0.03 K/mm3 (0.00-0.10); IMMATURE GRAN PERCENT AUTO 0 % (0-1); LYMPHOCYTES ABSOLUTE AUTO 1.74 K/mm3 (0.84-5.20); LYMPHOCYTES PERCENT AUTO 24 % (21-46); MONOCYTES ABSOLUTE AUTO 1.01 K/mm3 (0.16-1.47); MONOCYTES PERCENT AUTO 14 % (4-13); Mean Corpuscular HGB 25.3 pg (26.0-34.0); Mean Corpuscular HGB Conc 32.1 g/dL (31.5-36.5); Mean Corpuscular Volume 79 fL (80-100); Mean Platelet Volume 10.7 fL (9.1-12.4); NEUTROPHILS ABSOLUTE AUTO 4.28 K/mm3 (1.96-9.15); NEUTROPHILS PERCENT AUTO 58 % (41-73); Platelet Count 367 K/mm3 (150-400); RDW Coefficient Variation 16.7 % (11.7-14.2); RDW Standard Deviation 48.2 fL (35.1-46.3); Red Blood Cell Count 3.67 M/mm3 (3.80-5.20); White Blood Cell Count 7.38 K/mm3 (4.00-11.30)
[2022-12-01 06:40] LABS: Bun/Creatinine Ratio 72.5 (12.0-20.0); Calcium, Blood 8.5 mg/dL (8.5-10.1); Creatinine, Blood 0.46 mg/dL (0.40-1.00)
[2022-12-01 07:37] VITALS: BP 98/52
[2022-12-01 12:30] LABS: Bun/Creatinine Ratio 96.9 (12.0-20.0); Calcium, Blood 8.7 mg/dL (8.5-10.1); Creatinine, Blood 0.41 mg/dL (0.40-1.00); Potassium, Blood 3.9 mmol/L (3.5-5.5)
[2022-12-01 15:57] VITALS: BP 107/58
--- NOTE | 2022-12-01 16:54 | NUR ---
SHIFT SUMMARY A&OX4, COOPERATIVE WITH CARE, FLAT AFFECT. ADMITTED FOR HYPONATREMIA. LATEST SODIUM LEVEL 125, TRENDING UP. REFUSED PT EVAL. SLEPT THROUGH MOST OF THE SHIFT. DENIED CP/PRESSURE, HEADACHE, DIZZINESS, OR SOB. ON 3LI O2 VIA NC SATTING IN THE MID 90'S WHICH IS BASELINE. PUREWICK STILL IN PLACE, CLEAR YELLOW URINE. NO ACUTE CHANGES THIS SHIFT. CURRENTLY WEARING PINK HEEL PROTECTORS, HEELS HAVE BLANCHABLE REDNESS. TELEHEALTH WITH JEROME OCCURED DURING SHIFT. ORDER FOR INCREASED PROTEIN WITH MEALS. PATIENT IS CURRENTLY LAYING FLOATED SUPONE IN BED, LOWEST POSITION, CALL LIGHT WITHIN REACH.
[2022-12-01 18:39] LABS: Bun/Creatinine Ratio 58.4 (12.0-20.0); Calcium, Blood 8.9 mg/dL (8.5-10.1); Creatinine, Blood 0.43 mg/dL (0.40-1.00)
[2022-12-01 19:55] VITALS: BP 85/59
--- NOTE | 2022-12-01 21:18 | NUR ---
BLOOD PRESSURE NOTIFIED DR TATUM OF BP OF 85/59. ORDERED TO HOLD METOPROLOL.
[2022-12-02 00:58] LABS: Bun/Creatinine Ratio 44.2 (12.0-20.0); Calcium, Blood 8.5 mg/dL (8.5-10.1); Creatinine, Blood 0.45 mg/dL (0.40-1.00); Potassium, Blood 4.4 mmol/L (3.5-5.5)
--- NOTE | 2022-12-02 04:59 | NUR ---
SHIFT SUMMARY PT IS A&O X4, CALM AND COOPERATIVE WITH CARE. INCONTINENT-PUREWICK IN PLACE WITH ATTENDS. LATEST SODIUM LEVEL 130, TREANDING IN THE UP DIRECTION. FLUID RESTRICTION MAINTAINED. WHEELCHAIR AT BASELINE, TOTAL DEPENDENT, BED BOUND. 3 L O2 VIA NC SATS MAINTAINED ABOVE 94%. PT DID EXPERIENCE SOME ANXIETY BEFORE BEDTIME-TREATED PER EMAR. SOFT PRESSURES. DR NOTIFIED--SEE NOTE. BED KEPT IN THE LOWEST POSITION WITH CALL LIGHT WITHIN REACH. CALLS APPROPRIATELY FOR NEEDS.
[2022-12-02 05:38] VITALS: BP 101/56
[2022-12-02 07:19] LABS: Albumin, Blood 2.6 g/dL (3.4-5.0); Anion Gap 3 mmol/L (6-16); Blood Urea Nitrogen 16 mg/dL (8-24); Bun/Creatinine Ratio 38.2 (12.0-20.0); CO2, Blood 36 mmol/L (21-32); Calcium, Blood 8.4 mg/dL (8.5-10.1); Chloride, Blood 91 mmol/L (98-108); Creatinine, Blood 0.42 mg/dL (0.40-1.00); Glomerular Filtration Rate 101 (60-); Glucose, Blood 90 mg/dL (70-99); Phosphorus, Blood 3.5 mg/dL (2.5-4.9); Potassium, Blood 4.3 mmol/L (3.5-5.5); Sodium, Blood 130 mmol/L (136-145)
[2022-12-02 07:33] VITALS: BP 101/47
--- NOTE | 2022-12-02 11:44 | NUR ---
Pt states no preference for [facility]. Information given to NENA Izquierdo.
[2022-12-02] MEDS ORDERED: UREAPRO454 GM PO (14:05)
--- NOTE | 2022-12-02 18:27 | NUR ---
SHIFT SUMMARY A&OX4, SLEPT T/O SHIFT. COOPERATIVE WITH MEDICATIONS, BUT REFUSED TO BE REPOSITIONED OR GIVEN A BED BATH. FLAT AFFECT. DENIES CP/PRESSURE, HEADACHE, OR DIZZINESS. SOB NOTED WITH CONGESTION. DIMINISHED LUNG SOUNDS THROUGHOUT. ENCOURAGED PATIENT TO USE THE FLUTTER VALVE, SHE VERBALIZED UNDERSTANDING. DENIED PAIN T/O SHIFT. NO ACUTE EVENTS THIS SHIFT. PLAN FOR PATIENT TO DISCHARGE TO A FACILITY/HOSPICE. PATIENT CURRENTLY SITTING UP EATING DINNER. BED IN LOWEST POSITION. CALL LIGHT WITHIN REACH.
[2022-12-02 19:18] VITALS: BP 116/61
--- NOTE | 2022-12-03 05:18 | NUR ---
SHIFT SUMMARY PT A&0 X4, COOPERATIVE WITH CARE BUT WITHDRAWN. PT IS INCONTINENT PUREWICK IN PLACE. BEDREST/TOTAL DEPEND/WHEELCHAIR AT BASELINE. EXCORIATION NOTICED. FLUID RESTRICTION MAINTAINED. PT DENIES ANY PAIN OR SOB. DOES HAVE SOME DIMINISHED LUNG SOUNDS WITH OCCASIONAL COUGH. 3 L O2 VIA NC, SATS ABOVE 94%. FLUTTER VALVE ENCOURAGED. BED IN LOWEST POSITION WITH CALL LIGHT WITHIN REACH. PT CALLS TO MAKE NEEDS KNOWN. WILL CONTINUE TO MONITOR.
[2022-12-03 05:34] VITALS: BP 98/55
[2022-12-03 05:48] LABS: Bun/Creatinine Ratio 40.9 (12.0-20.0); Calcium, Blood 8.6 mg/dL (8.5-10.1); Creatinine, Blood 0.42 mg/dL (0.40-1.00); Potassium, Blood 4.4 mmol/L (3.5-5.5)
[2022-12-03 07:17] VITALS: BP 90/52
[2022-12-03 11:51] LABS: Influenza A, PCR NEGATIVE (NEGATIVE); Influenza B, PCR NEGATIVE (NEGATIVE); Resp Syncytial Virus, PCR NEGATIVE (NEGATIVE); SARS-Cov-2 (COVID-19) PCR, MMC NEGATIVE (NEGATIVE)
--- NOTE | 2022-12-03 13:00 | NUR ---
SHIFT SUMMARY AND DISCHARGE PATIENT AROUSABLE DENIES ANY PAIN. ABLE TO VERBALIZE NEEDS. PATIENT TO TRANSFER TO [facility] AND TO BE PLACED ON HOSPICE. REPORT CALLED TO [facility]. IV DC'D. BELONGINGS SENT WITH PATIENT. ROOM CHECK DONE BEFORE PATIENT DISCHARGED. TRANSFER PACKET SENT WITH TRANSFER AMBULANCE. PATIENT BEDBOUND AT THIS TIME. PATIENT TENDS TO LIST TO THE R ALONG WITH HEAD AND NECK.
== END 2022-12-03 13:09 | disposition hospice, home (50) | DRG 643 ==
LOC: ER 10:23 → MEDS 12:08 → ICUE 12:08 → MEDS 15:59 → ICUE 11-28 11:28 → MEDS 11-28 16:42 → ENPENDDIS 12-03 10:20 → MEDS 12-03 13:09
PROVIDERS: Emergency Medicine; Family Medicine; Hospitalist; Internal Medicine Nephrology; ADMIT Family Medicine
DX: E22.2 Syndrome of inappropriate secretion of antidiuretic hormone (principal); J18.9 Pneumonia, unspecified organism; J44.1 Chronic obstructive pulmonary disease with (acute) exacerbation; J96.11 Chronic respiratory failure with hypoxia; J44.0 Chronic obstructive pulmonary disease with (acute) lower respiratory infection; N39.0 Urinary tract infection, site not specified; J90 Pleural effusion, not elsewhere classified; E44.0 Moderate protein-calorie malnutrition; Z66 Do not resuscitate; I48.91 Unspecified atrial fibrillation; Z11.52 Encounter for screening for COVID-19; E03.9 Hypothyroidism, unspecified; F17.210 Nicotine dependence, cigarettes, uncomplicated; E87.8 Other disorders of electrolyte and fluid balance, not elsewhere classified; D50.9 Iron deficiency anemia, unspecified; I73.9 Peripheral vascular disease, unspecified; F32.A Depression, unspecified; F41.9 Anxiety disorder, unspecified; B96.1 Klebsiella pneumoniae [K. pneumoniae] as the cause of diseases classified elsewhere; Z79.01 Long term (current) use of anticoagulants; Z86.711 Personal history of pulmonary embolism; Z88.2 Allergy status to sulfonamides; Z88.8 Allergy status to other drugs, medicaments and biological substances; Z79.890 Hormone replacement therapy; Z99.3 Dependence on wheelchair
CPT/HCPCS: 0241U; 32555; 36415; 51701; 71045; 80048; 80053; 80069; 81003; 83540; 83550; 83615; 83880; 83935; 84157; 84300; 84560; 85025; 87070; 87075; 87205; 89051; 93005; 93010; 94640; 94664; 94760; 94762; 96361; 96365; 97110; 97162; 99285-25; A9270; J0295; J7030